=== PATIENT | male | born 1945 | race American Indian/Alaskan Native ===

== ENCOUNTER 2016-05-04 16:18 | Inpatient (IN) | payer MEDICARE ==
[2016-05-04 17:42] LABS: Basophils % (Auto) 0.3 % (0.0-1.8); Eosinophils % (Auto) 0.4 % (0.0-4.3); Hematocrit 29.1 % (35.5-45.6); Hemoglobin 9.3 gm/dl (11.8-15.2); Mean Corpuscular HGB Conc 32 % (32-34); Mean Corpuscular Hemoglobin 30 pg (28-32); Mean Corpuscular Volume 93 fl (84-94); Platelet Count 325 K/mm3 (140-440); Red Blood Count 3.14 M/mm3 (3.65-5.03); Red Cell Distribution Width 13.3 % (13.2-15.2); White Blood Count 11.6 K/mm3 (4.5-11.0)
[2016-05-04 18:32] LABS: Anion Gap 19 mmol/L; Blood Urea Nitrogen 42 mg/dL (9-20); Calcium 9.3 mg/dL (8.4-10.2); Carbon Dioxide 23 mmol/L (22-30); Chloride 92.3 mmol/L (98-107); Glucose 278 mg/dL (75-100); Potassium 4.2 mmol/L (3.6-5.0); Sodium 130 mmol/L (137-145)
[2016-05-04] MEDS ORDERED: PEPCID IV ONE (20:44)
[2016-05-04] MEDS ORDERED: PROTONIX IV ONE (20:44)
[2016-05-04] MEDS ORDERED: NACL 0.9% 500 ML 500 ML IV ONE (20:44)
--- NOTE | 2016-05-04 20:50 | Emergency Department Report ---
ED General Adult HPI - General Chief complaint: Weakness Stated complaint: TACHYCARDIA/SYNCOPE/SENT BY DOC Time Seen by Provider: 05/04/16 20:17 Source: patient, RN notes reviewed Mode of arrival: Ambulatory Limitations: No Limitations - History of Present Illness Initial comments: This is a 70-year-old male, previously unknown to me. His primary care doctor' s Dr. Gross. Has a past medical history of diabetes, high cholesterol, GERD, does not take aspirin. Patient reports never having had a colonoscopy. He does not have a private bank consultant. Reports a family history of colon cancer. Patient presents to the ER complaining of weakness, dizziness, near syncope, dark tarry stool. There is no head trauma. Did not hit his head. No headache or neck pain. No chest pain. Mild shortness of breath. There is no leg pain. There is no leg swelling. No recent trips greater than 4 hours. No recent hospital admissions. Positive nausea. No vomiting. Symptoms are constant. They're worse with physical exertion. They decrease with rest. -: Gradual Severity scale (0 -10): 0 Consistency: constant Improves with: rest Worsens with: movement Associated Symptoms: malaise, syncope, weakness. denies: chest pain, cough, diaphoresis, fever/chills - Related Data Home Medications Medication Instructions Recorded Confirmed Last Taken Atorvastatin Calcium [Lipitor] 20 mg PO QHS 05/04/16 05/04/16 1 Day Ago 20 Lisinopril [Zestril] 5 mg PO QDAY 05/04/16 05/04/16 1 Day Ago 5 Pantoprazole [Protonix] 40 mg PO QDAY 05/04/16 05/04/16 1 Day Ago 40 glipiZIDE [Glucotrol] 5 mg PO BID 05/04/16 05/04/16 1 Day Ago 5 Allergies Allergy/AdvReac Type Severity Reaction Status Date / Time No Known Allergies Allergy Unverified 05/04/16 16:26 ED Review of Systems ROS: Stated complaint: TACHYCARDIA/SYNCOPE/SENT BY DOC Other details as noted in HPI Constitutional: malaise, weakness Eyes: denies: eye discharge ENT: denies: epistaxis Respiratory: denies: cough Cardiovascular: syncope Gastrointestinal: melena. denies: abdominal pain Genitourinary: denies: dysuria Musculoskeletal: denies: back pain Skin: denies: lesions Neurological: weakness Psychiatric: as per HPI Hematological/Lymphatic: denies: easy bleeding ED Past Medical Hx - Past Medical History Previous Medical History?: Yes Hx Hypertension: Yes Hx Diabetes: Yes Hx GERD: Yes Additional medical history: dizziness - Surgical History Past Surgical History?: No - Social History Smoking Status: Current Every Day Smoker Substance Use Type: Alcohol, Prescribed - Medications Home Medications: Home Medications Medication Instructions Recorded Confirmed Last Taken Type Atorvastatin Calcium [Lipitor] 20 mg PO QHS 05/04/16 05/04/16 1 Day Ago History 20 Lisinopril [Zestril] 5 mg PO QDAY 05/04/16 05/04/16 1 Day Ago History 5 Pantoprazole [Protonix] 40 mg PO QDAY 05/04/16 05/04/16 1 Day Ago History 40 glipiZIDE [Glucotrol] 5 mg PO BID 05/04/16 05/04/16 1 Day Ago History 5 ED Physical Exam - General Limitations: No Limitations General appearance: alert, in no apparent distress - Head Head exam: Present: atraumatic, normocephalic - Eye Eye exam: Present: normal appearance, EOMI. Absent: nystagmus - ENT ENT exam: Present: normal exam, normal orophraynx, mucous membranes moist, normal external ear exam - Neck Neck exam: Present: normal inspection, full ROM. Absent: tenderness, meningismus - Respiratory Respiratory exam: Present: normal lung sounds bilaterally. Absent: respiratory distress, wheezes, rales, rhonchi, stridor, chest wall tenderness - Cardiovascular Cardiovascular Exam: Present: normal rhythm, tachycardia, normal heart sounds. Absent: systolic murmur, diastolic murmur, rubs, gallop - GI/Abdominal GI/Abdominal exam: Present: soft, normal bowel sounds. Absent: distended, tenderness, guarding, rebound, rigid, pulsatile mass - Rectal Rectal exam: Present: normal inspection, normal rectal tone, heme (+) stool, black stool - Extremities Exam Extremities exam: Present: normal inspection, full ROM, normal capillary refill. Absent: tenderness, pedal edema, joint swelling, calf tenderness - Back Exam Back exam: Present: normal inspection, full ROM. Absent: tenderness, CVA tenderness (R), CVA tenderness (L), muscle spasm, paraspinal tenderness, vertebral tenderness - Neurological Exam Neurological exam: Present: alert, oriented X3, normal gait (there is no pass pointing. Normal [id number]. Negative pronator drift. Walks with a steady gait. Negative Romberg.), other (Extraocular movements intact. Tongue midline. No facial droop. Facial sensation intact to light touch in the V1, V2 , V3 distribution bilaterally. 5 and 5 strength in 4 extremities.. Sensation is intact to light touch in 4 extremities.). Absent: motor sensory deficit - Psychiatric Psychiatric exam: Present: normal affect, normal mood - Skin Skin exam: Present: warm, dry, intact, normal color. Absent: rash ED Course Vital Signs 05/04/16 05/04/16 05/04/16 16:26 20:09 20:28 Temperature 97.8 F 99.0 F Pulse Rate 39 L 116 H Respiratory 22 18 Rate Blood Pressure 118/67 Blood Pressure 106/62 [Left] O2 Sat by Pulse 97 100 Oximetry 05/04/16 05/04/16 05/04/16 21:38 22:00 22:54 Temperature Pulse Rate 112 H 112 H 110 H Respiratory 18 18 18 Rate Blood Pressure Blood Pressure 115/65 122/62 118/62 [Left] O2 Sat by Pulse 100 100 100 Oximetry - Reevaluation(s) Reevaluation #1: 05/04/16 21:56 Differential diagnosis: Orthostasis, arrhythmia, gastrointestinal bleeding, pneumonia, urinary tract infection, structural cardiac disease Assessment and plan: 70-year-old male with profound tachycardia, elevated blood urea nitrogen, borderline decreased hemoglobin and hematocrit, has had a colonoscopy, has had an endoscopy, with near syncope/syncope. He has a GCS of 15, with an NIH score of 0, and walks with a steady gait. There are no pulmonary embolus or DVT risk factors, and he is low risk by well' s criteria. He has black tarry stool on exam that is strongly guaiac positive. Given constellation of symptoms, I'm concerned that the patient has an active upper GI bleed. 2 large-bore IVs were ordered, Protonix ordered, packed red blood cells are ordered. Case is discussed with the bank consultant, Dr. Rodriguez, whose group will see the patient as a consult in the morning. Case is discussed with the Hospital physician, Dr. Spence, who accepts the patient to her service. Family and patient informed of probable diagnosis, they have no mormon objections to packed red blood cell transfusion. ED Medical Decision Making - Lab Data Result diagrams: 05/05/16 23:10 05/05/16 08:38 Vital Signs 05/04/16 05/04/16 05/04/16 16:26 20:09 20:28 Temperature 97.8 F 99.0 F Pulse Rate 39 L 116 H Respiratory 22 18 Rate Blood Pressure 118/67 Blood Pressure 106/62 [Left] O2 Sat by Pulse 97 100 Oximetry 05/04/16 21:38 Temperature Pulse Rate 112 H Respiratory 18 Rate Blood Pressure Blood Pressure 115/65 [Left] O2 Sat by Pulse 100 Oximetry Labs 05/04/16 05/04/16 05/04/16 16:56 16:56 20:18 WBC 11.6 H RBC 3.14 L Hgb 9.3 L Hct 29.1 L MCV 93 MCH 30 MCHC 32 RDW 13.3 Plt Count 325 Lymph % (Auto) 16.2 Bell % (Auto) 7.0 Eos % (Auto) 0.4 Baso % (Auto) 0.3 Lymph # 1.9 Bell # 0.8 Eos # 0.0 Baso # 0.0 Seg Neutrophils % 76.1 H Seg Neutrophils # 8.8 H PT INR Sodium 130 L Potassium 4.2 Chloride 92.3 L Carbon Dioxide 23 Anion Gap 19 BUN 42 H Creatinine 1.2 Estimated GFR > 60 BUN/Creatinine Ratio 35.00 Glucose 278 H Calcium 9.3 Troponin T < 0.010 < 0.010 Urine Color Urine Turbidity Urine pH Ur Specific [place] Urine Protein Urine Glucose (UA) Urine Ketones Urine Blood Urine Nitrite Urine Bilirubin Urine Urobilinogen Ur Leukocyte Esterase Urine WBC (Auto) Urine RBC (Auto) U Epithel Cells (Auto) Urine Mucus 05/04/16 05/04/16 20:53 21:19 WBC RBC Hgb Hct MCV MCH MCHC RDW Plt Count Lymph % (Auto) Bell % (Auto) Eos % (Auto) Baso % (Auto) Lymph # Bell # Eos # Baso # Seg Neutrophils % Seg Neutrophils # PT 13.5 INR 1.04 Sodium Potassium Chloride Carbon Dioxide Anion Gap BUN Creatinine Estimated GFR BUN/Creatinine Ratio Glucose Calcium Troponin T Urine Color Yellow Urine Turbidity Clear Urine pH 5.0 Ur Specific [place] 1.016 Urine Protein <15 mg/dl Urine Glucose (UA) >=500 Urine Ketones Neg Urine Blood Neg Urine Nitrite Neg Urine Bilirubin Neg Urine Urobilinogen < 2.0 Ur Leukocyte Esterase Neg Urine WBC (Auto) 2.0 Urine RBC (Auto) 1.0 U Epithel Cells (Auto) < 1.0 Urine Mucus Few - EKG Data 05/04/16 21:58 Sinus tachycardia, 121 bpm, normal intervals, normal axis, not morphologically consistent with STEMI. - Radiology Data Radiology results: image reviewed interpreted by me: X-ray chest appears to be negative. Urinalysis does not corroborate urinary tract infection. Critical care time in (mins) excluding proc time.: 35 Critical care attestation.: If time is entered above; I have spent that time in minutes in the direct care of this critically ill patient, excluding procedure time. Critical Care Time: criticall care time includes multiple bedside evaluations, interpretation of laboratory studies, radiology studies, time spent managing a critically ill patient with upper GI bleed, requiring consultation with hospital medicine, gastroenterology, transfusion of packed red blood cells. This excludes procedure time. ED Disposition Clinical Impression: Upper GI bleed Disposition: OP ADMITTED IP TO THIS HOSP Is pt being admited?: Yes Condition: Fair
[2016-05-04] MEDS ORDERED: NACL 0.9% 500 ML IV SCH (21:00)
--- NOTE | 2016-05-04 21:22 | Admit Criteria Form ---
Admission Criteria Documentation: GASTROINTESTINAL BLEEDING, UPPER Clinical Indications for Admission to Inpatient Care ( Place 'X' for any and all applicable criteria): Admission is indicated for ANY ONE of the following(1)(2)(3)(4)(5)(6): [ X]I. Active bleeding (eg, fresh voluminous blood in emesis or nasogastric aspirate) [ ]II. Associated conditions requiring hospitalization (eg, perforation, obstruction from ulcer) [X ]III. Inpatient admission required rather than observation care (Also use Gastrointestinal Bleeding, Upper: Observation Care as appropriate) because of ANY ONE of the following: [X ]a) Hemodynamic instability that is severe or persistent [X]b) Anemia requiring inpatient admission as indicated by ALL of the following: [X ]1) Presence of significant clinical finding indicated by ANY ONE of the following: [ X]A. Tachycardia for age [ ]B. Orthostatic vital sign changes [ ]C. Cognitive impairment [ ]D. Heart failure [ ]E. Chest pain [ ]F. Exertional dyspnea [ ]G. Other findings suggesting inadequate perfusion (eg, peripheral or myocardial ischemia, end organ dysfunction) [ ]2) Initial (eg, emergency department, observation care) treatment with transfusion or volume replacement is judged inappropriate (due to severity of the finding) or has been ineffective [ ]c) Severe pain requiring acute inpatient management [ ]d) High-risk low platelet count [ ]e) IV fluid to replace significant ongoing losses (greater than 3 L/m2 per day) [ ]f) Immediate inpatient surgery [ ]g) Other condition, treatment or monitoring requiring inpatient admission [ ]IV. Severe liver disease (eg, cirrhosis) [ ]V. Significant active comorbid disease [ ]. Anticoagulation therapy [ ]VII. High-risk endoscopic features (arterial bleeding, adherent clot, nonbleeding visible vessel, varices, flat red spots, ulcer size greater than 2 cm, or portal hypertensive gastropathy) [ ]VIII. Previous aortic graft placement or known aortic aneurysm [ ]IX. Coagulopathy [ ]X. Syncope Extended stay beyond goal length of stay may be needed for(1)(2): [ ]a) Emergency surgery [ ]b) Varices [ ]c) Coagulation abnormalities [ ]d) Recurrent, obscure, or persistent bleeding or continued Hemodynamic instability [ ]e) Associated conditions requiring surgery (eg, perforated gastric ulcer, gastric outlet obstruction) [ ]f) Active comorbidities (eg, renal insufficiency, heart failure, pre- existing liver disease) The original [facility] [employer] content created by [facility] [employer] has been revised. The portions of the content which have been revised are identified through the use of italic text or in bold, and [facility] has neither reviewed nor approved the modified material. All other unmodified content is copyright [facility] [employer]. Please see references footnoted in the original [facility] [employer] edition 2016 Admission Criteria Met: Yes
[2016-05-04 21:24] LABS: Bilirubin,Urine NEG (Negative); Blood,Urine NEG (Negative); Ketones,Urine NEG (Negative); Leukocyte Esterase,Urine NEG (Negative); Mucus,Urine FEW /HPF; Nitrite,Urine NEG (Negative); Protein,Urine <15 mg/dL mg/dL (Negative); Urobilinogen,Urine < 2.0 mg/dL (<2.0)
[2016-05-04 21:48] LABS: INR 1.04 (0.87-1.13)
--- NOTE | 2016-05-04 21:49 | History and Physical Report ---
History of Present Illness Date of examination: 05/04/16 Date of admission: 05/04/16 Chief complaint: Dizziness and syncope History of present illness: This is a 70 y/o male with h/o DM2 on oral hypoglycemic medication, hypertension and hyperlipidemia presented to the ER today from his primary care physician office. Patient states that for the last 3-4 days he was experiencing dizziness and black tarry stool. Today morning when he wakes up his dizziness was much worse than prior episodes and was lasting longer than usual. He was sitting on a chair on his drive way and all of a sudden he passed way, noticed by his cousin. He was unresponsive for a few minutes without any urinary incontinence tongue bite or any seizure type activity. He was taken to his primary care physician office and they recommended him to come to ER. In the ER patient noted to be tachycardic and his stool was positive for occult blood. His hemoglobin noted to be 9.3 and a repeated one showed 8.0 , he'll be getting 1 unit of blood transfusion today. GI has been consulted from the ER was called follow him tomorrow morning. Patient is getting admitted for further evaluation and management. He denies any similar episode before and never had colonoscopy. Past medical History: h/o diabetes mellitus type 2, hypertension and hyperlipidemia Past surgical History: None Social History: Lives with family, smokes 1-2 cigarettes per day, occasional drinking and denies any elicit drug abuse. Family History: Significant for lung cancer in father, and colon cancer and throat cancer in brother. PCP: Dr. Gross Review of System: Constitutional: no fever, no chills, no weight loss, + dizziness Ears, eyes, nose, mouth and throat: no nasal congestion, no nasal discharge, no sinus pressure, no vision change, no red eye. Neck: No neck pain or rigidity. Cardiovascular: No chest pain, no orthopnea, no palpitations, no leg swelling Respiratory: No shortness of breath, no cough, no congestion, no wheezing Gastrointestinal: no abdominal pain, no nausea, no vomiting, + debbie Genitourinary : no dysuria, no hematuria Musculoskeletal: no joint swelling or muscle ache Integumentary: no rash, no pruritis Neurological: no parathesias, no numbness, no tingling Endocrine: no cold or heat intolerance, no polyuria or polydipsia Hematologic/Lymphatic: no easy bruising, no easy bleeding, no gland swelling Allergic/Immunologic: no urticaria, no angioedema. Medications and Allergies Allergies Allergy/AdvReac Type Severity Reaction Status Date / Time No Known Allergies Allergy Unverified 05/04/16 16:26 Home Medications Medication Instructions Recorded Confirmed Last Taken Type Atorvastatin Calcium [Lipitor] 20 mg PO QHS 05/04/16 05/04/16 1 Day Ago History 20 Lisinopril [Zestril] 5 mg PO QDAY 05/04/16 05/04/16 1 Day Ago History 5 Pantoprazole [Protonix] 40 mg PO QDAY 05/04/16 05/04/16 1 Day Ago History 40 glipiZIDE [Glucotrol] 5 mg PO BID 05/04/16 05/04/16 1 Day Ago History 5 Active Meds: Active Medications Sodium Chloride (Nacl 0.9% 500 Ml) 2,000 ml IV NOW JAYSHREE Last Admin: 05/04/16 21:20 Dose: 2,000 ml Exam - Physical Exam Narrative exam: GENERAL: This is an elderly AAM lying on bed appeared to be in no discomfort. HEENT: Normocephalic. Atraumatic. Extraocular motions are intact. No conjunctival congestion or icterus. Patient has moist mucous membranes. External auditory canal and nares patent bilaterally. NECK: Supple. Trachea midline. No JVD, thyromagaly or lymphadenopathy. CHEST/LUNGS: Clear to auscultated bilaterally. There is no respiratory distress noted, breathing nonlabored. No wheezes crackles or rhonchi. HEART/CARDIOVASCULAR: Regular in rate and rhythm. PMI at the apex. There is no gallop rub or murmur. ABDOMEN: Abdomen is soft, nontender. Patient has normal bowel sounds. There is no abdominal distention. No organomagaly or rigidity. SKIN: There is no rash, no erythrema. There is no diaphoresis. Warm and dry. NEUROLOGY: The patient is awake, alert, and oriented. The patient is cooperative. The patient has normal speech. No focal motor deficit. MUSCULOSKELETAL: No joint effusion or tenderness. Muscle strength equal bilaterally. No muscle wasting. EXTRIMITY: No edema, cyanosis or clubbing. PSYCH: No depression or anxiety noted. Cooperative. - Constitutional Vitals: Temp Pulse Resp BP Pulse Ox 99.0 F 112 H 18 115/65 100 05/04/16 20:28 05/04/16 21:38 05/04/16 21:38 05/04/16 21:38 05/04/16 21:38 Results - Labs CBC & Chem 7: 05/04/16 22:10 05/04/16 16:56 Labs: Laboratory Last Values WBC 11.6 K/mm3 (4.5-11.0) H 05/04/16 16:56 RBC 3.14 M/mm3 (3.65-5.03) L 05/04/16 16:56 Hgb 9.3 gm/dl (11.8-15.2) L 05/04/16 16:56 Hct 29.1 % (35.5-45.6) L 05/04/16 16:56 MCV 93 fl (84-94) 05/04/16 16:56 MCH 30 pg (28-32) 05/04/16 16:56 MCHC 32 % (32-34) 05/04/16 16:56 RDW 13.3 % (13.2-15.2) 05/04/16 16:56 Plt Count 325 K/mm3 (140-440) 05/04/16 16:56 Lymph % (Auto) 16.2 % (13.4-35.0) 05/04/16 16:56 [place] % (Auto) 7.0 % (0.0-7.3) 05/04/16 16:56 Eos % (Auto) 0.4 % (0.0-4.3) 05/04/16 16:56 Baso % (Auto) 0.3 % (0.0-1.8) 05/04/16 16:56 Lymph # 1.9 K/mm3 (1.2-5.4) 05/04/16 16:56 [place] # 0.8 K/mm3 (0.0-0.8) 05/04/16 16:56 Eos # 0.0 K/mm3 (0.0-0.4) 05/04/16 16:56 Baso # 0.0 K/mm3 (0.0-0.1) 05/04/16 16:56 Seg Neutrophils % 76.1 % (40.0-70.0) H 05/04/16 16:56 Seg Neutrophils # 8.8 K/mm3 (1.8-7.7) H 05/04/16 16:56 Sodium 130 mmol/L (137-145) L 05/04/16 16:56 Potassium 4.2 mmol/L (3.6-5.0) 05/04/16 16:56 Chloride 92.3 mmol/L (98-107) L 05/04/16 16:56 Carbon Dioxide 23 mmol/L (22-30) 05/04/16 16:56 Anion Gap 19 mmol/L 05/04/16 16:56 BUN 42 mg/dL (9-20) H 05/04/16 16:56 Creatinine 1.2 mg/dL (0.8-1.5) 05/04/16 16:56 Estimated GFR > 60 ml/min 05/04/16 16:56 BUN/Creatinine Ratio 35.00 % 05/04/16 16:56 Glucose 278 mg/dL (75-100) H 05/04/16 16:56 Calcium 9.3 mg/dL (8.4-10.2) 05/04/16 16:56 Troponin T < 0.010 ng/mL (0.00-0.029) 05/04/16 20:18 Urine Color Yellow (Yellow) 05/04/16 20:53 Urine Turbidity Clear (Clear) 05/04/16 20:53 Urine pH 5.0 (5.0-7.0) 05/04/16 20:53 Ur Specific [place] 1.016 (1.003-1.030) 05/04/16 20:53 Urine Protein <15 mg/dl mg/dL (Negative) 05/04/16 20:53 Urine Glucose (UA) >=500 mg/dL (Negative) 05/04/16 20:53 Urine Ketones Neg mg/dL (Negative) 05/04/16 20:53 Urine Blood Neg (Negative) 05/04/16 20:53 Urine Nitrite Neg (Negative) 05/04/16 20:53 Urine Bilirubin Neg (Negative) 05/04/16 20:53 Urine Urobilinogen < 2.0 mg/dL (<2.0) 05/04/16 20:53 Ur Leukocyte Esterase Neg (Negative) 05/04/16 20:53 Urine WBC (Auto) 2.0 /HPF (0.0-6.0) 05/04/16 20:53 Urine RBC (Auto) 1.0 /HPF (0.0-6.0) 05/04/16 20:53 U Epithel Cells (Auto) < 1.0 /HPF (0-13.0) 05/04/16 20:53 Urine Mucus Few /HPF 05/04/16 20:53 - Imaging and Cardiology Chest x-ray: report reviewed Assessment and Plan Assessment and plan: Dizziness with syncope * Likely due to to dehydration from acute GI bleed * Placed on IV fluid hydration, fall precaution Acute upper GI bleed * Monitor H&H * GI consulted * Transfused 1 unit of packed RBC in the ER * Continue adequate hydration * Placed on Protonix IV Hypertension, benign essential * Hold home medications for now * Resume as needed Diabetes mellitus type 2 * Place on sliding scale of insulin * Nothing by mouth for now, ADA diet when cleared by GI Hyperlipidemia * Continue statin GI and DVT prophylaxis * SCD for DVT prophylaxis and Protonix for GI prophylaxis It took me about 46 minutes for initial care of this patient including history and physical, reviewing initial lab results and ER documents, placing admission orders, bedside counseling and coordination of care. Advance Directives: Yes VTE prophylaxis?: Not ordered Contraindication Mechanical VTE Prophylaxis: Contraindicated Plan of care discussed with patient/family: Yes
[2016-05-04] MEDS ORDERED: ZOFRAN IV PRN (21:51)
[2016-05-04] MEDS ORDERED: MORPHINE IV PRN (21:51)
[2016-05-04] MEDS ORDERED: TYLENOL PO PRN (21:51)
[2016-05-04] MEDS ORDERED: D50W (25GM) IV PRN (21:51)
[2016-05-04] MEDS ORDERED: DULCOLAX PR PRN (21:51)
[2016-05-04] MEDS ORDERED: AMBIEN PO PRN (21:51)
[2016-05-04] MEDS ORDERED: PROTONIX 80 MG in NACL 0.9% 100 ML IV SCH (22:00)
[2016-05-04] MEDS ORDERED: D5/0.45NS 1,000 ML IV SCH (22:00)
[2016-05-04 22:35] LABS: Hematocrit 24.7 % (35.5-45.6)
[2016-05-04] MEDS: PROTONIX IV SCH (22:49)
[2016-05-05] MEDS ORDERED: NACL 0.9% 1000 ML 1,000 ML IV SCH (01:00)
--- NOTE | 2016-05-05 07:21 | XRay Report ---
AP CHEST: HISTORY: Syncope, weakness. AP view of the chest demonstrates a normal mediastinal and cardiac contour with clear lungs and normal bony and soft tissue structures. IMPRESSION: Unremarkable AP chest.
[2016-05-05 09:19] LABS: Basophils % (Auto) 0.4 % (0.0-1.8); Eosinophils % (Auto) 2.2 % (0.0-4.3); Hemoglobin 10.9 gm/dl (11.8-15.2); Mean Corpuscular HGB Conc 33 % (32-34); Mean Corpuscular Hemoglobin 30 pg (28-32); Platelet Count 244 K/mm3 (140-440); Red Blood Count 3.68 M/mm3 (3.65-5.03); White Blood Count 10.5 K/mm3 (4.5-11.0)
[2016-05-05 09:26] LABS: Hematocrit 32.9 % (35.5-45.6)
[2016-05-05 09:27] LABS: Mean Corpuscular Volume 89 fl (84-94)
[2016-05-05 09:36] LABS: Anion Gap 16 mmol/L; BUN/Creatinine Ratio 25.71; Blood Urea Nitrogen 18 mg/dL (9-20); Calcium 8.5 mg/dL (8.4-10.2); Carbon Dioxide 21 mmol/L (22-30); Chloride 105.1 mmol/L (98-107); Glucose 134 mg/dL (75-100); Potassium 3.7 mmol/L (3.6-5.0); Sodium 138 mmol/L (137-145)
[2016-05-05 09:39] LABS: INR 1.03 (0.87-1.13)
[2016-05-05] MEDS: PROTONIX IV SCH ×2 (09:56→21:36)
[2016-05-05] MEDS: GLUCOTROL PO SCH ×2 (09:57→17:49)
--- NOTE | 2016-05-05 11:33 | Progress Note ---
Assessment and Plan Assessment and plan: 1. Syncope * Likely due to to anemia from acute GI bleed * Patient is status post 2 units of packed red blood cells. 2. Acute upper GI bleed * Monitor H&H * GI consulted * Continue adequate hydration * Cont. Protonix IV 3. Hypertension, benign essential * Hold home medications for now * Resume as needed 4. Diabetes mellitus type 2 * Place on sliding scale of insulin * Nothing by mouth for now, ADA diet when cleared by GI 5. Hyperlipidemia * Continue statin 6. DVT prophylaxis * SCD for DVT prophylaxis History Interval history: This is a 70 y/o male with h/o DM2 on oral hypoglycemic medication, hypertension and hyperlipidemia presented to the ER today from his primary care physician office with complaints of melena, syncope and dizziness. Hospitalist Physical - Constitutional Vitals: Temp Pulse Resp BP Pulse Ox 98.6 F 95 H 20 183/90 100 05/05/16 07:10 05/05/16 09:49 05/05/16 09:49 05/05/16 09:49 05/05/16 09:49 General appearance: Present: no acute distress, well-nourished - EENT Eyes: Present: PERRL, EOM intact ENT: hearing intact, clear oral mucosa, dentition normal - Neck Neck: Present: supple, normal ROM - Respiratory Respiratory effort: normal Respiratory: bilateral: CTA - Cardiovascular Rhythm: regular Heart Sounds: Present: S1 & S2. Absent: gallop, rub - Extremities Extremities: no ischemia, No edema, Full ROM - Abdominal General gastrointestinal: soft, non-tender, non-distended, normal bowel sounds - Integumentary Integumentary: Present: clear, warm, dry - Neurologic Neurologic: CNII-XII intact, moves all extremities Results - Labs CBC & Chem 7: 05/05/16 08:38 05/05/16 08:38 Labs: Laboratory Last Values WBC 10.5 K/mm3 (4.5-11.0) 05/05/16 08:38 RBC 3.68 M/mm3 (3.65-5.03) 05/05/16 08:38 Hgb 10.9 gm/dl (11.8-15.2) L 05/05/16 08:38 Hct 32.9 % (35.5-45.6) L D 05/05/16 08:38 MCV 89 fl (84-94) D 05/05/16 08:38 MCH 30 pg (28-32) 05/05/16 08:38 MCHC 33 % (32-34) 05/05/16 08:38 RDW 14.0 % (13.2-15.2) 05/05/16 08:38 Plt Count 244 K/mm3 (140-440) 05/05/16 08:38 Lymph % (Auto) 22.7 % (13.4-35.0) 05/05/16 08:38 [place] % (Auto) 6.8 % (0.0-7.3) 05/05/16 08:38 Eos % (Auto) 2.2 % (0.0-4.3) 05/05/16 08:38 Baso % (Auto) 0.4 % (0.0-1.8) 05/05/16 08:38 Lymph # 2.4 K/mm3 (1.2-5.4) 05/05/16 08:38 [place] # 0.7 K/mm3 (0.0-0.8) 05/05/16 08:38 Eos # 0.2 K/mm3 (0.0-0.4) 05/05/16 08:38 Baso # 0.0 K/mm3 (0.0-0.1) 05/05/16 08:38 Seg Neutrophils % 67.9 % (40.0-70.0) 05/05/16 08:38 Seg Neutrophils # 7.1 K/mm3 (1.8-7.7) 05/05/16 08:38 PT 13.4 Sec. (12.2-14.9) 05/05/16 08:38 INR 1.03 (0.87-1.13) 05/05/16 08:38 Sodium 138 mmol/L (137-145) D 05/05/16 08:38 Potassium 3.7 mmol/L (3.6-5.0) 05/05/16 08:38 Chloride 105.1 mmol/L (98-107) 05/05/16 08:38 Carbon Dioxide 21 mmol/L (22-30) L 05/05/16 08:38 Anion Gap 16 mmol/L 05/05/16 08:38 BUN 18 mg/dL (9-20) 05/05/16 08:38 Creatinine 0.7 mg/dL (0.8-1.5) L 05/05/16 08:38 Estimated GFR > 60 ml/min 05/05/16 08:38 BUN/Creatinine Ratio 25.71 % 05/05/16 08:38 Glucose 134 mg/dL (75-100) H 05/05/16 08:38 POC Glucose 120 (70-105) H 05/05/16 06:22 Calcium 8.5 mg/dL (8.4-10.2) 05/05/16 08:38 Troponin T < 0.010 ng/mL (0.00-0.029) 05/04/16 21:24 Urine Color Yellow (Yellow) 05/04/16 20:53 Urine Turbidity Clear (Clear) 05/04/16 20:53 Urine pH 5.0 (5.0-7.0) 05/04/16 20:53 Ur Specific [place] 1.016 (1.003-1.030) 05/04/16 20:53 Urine Protein <15 mg/dl mg/dL (Negative) 05/04/16 20:53 Urine Glucose (UA) >=500 mg/dL (Negative) 05/04/16 20:53 Urine Ketones Neg mg/dL (Negative) 05/04/16 20:53 Urine Blood Neg (Negative) 05/04/16 20:53 Urine Nitrite Neg (Negative) 05/04/16 20:53 Urine Bilirubin Neg (Negative) 05/04/16 20:53 Urine Urobilinogen < 2.0 mg/dL (<2.0) 05/04/16 20:53 Ur Leukocyte Esterase Neg (Negative) 05/04/16 20:53 Urine WBC (Auto) 2.0 /HPF (0.0-6.0) 05/04/16 20:53 Urine RBC (Auto) 1.0 /HPF (0.0-6.0) 05/04/16 20:53 U Epithel Cells (Auto) < 1.0 /HPF (0-13.0) 05/04/16 20:53 Urine Mucus Few /HPF 05/04/16 20:53 Blood Type A POSITIVE 05/04/16 21:20 Antibody Screen Negative 05/04/16 21:20 Crossmatch See Detail 05/04/16 21:20
[2016-05-05 14:17] LABS: Hematocrit 33.7 % (35.5-45.6)
--- NOTE | 2016-05-05 15:31 | Gastroenterology Consultation ---
History of Present Illness - Reason for Consult Consult date: 05/05/16 melena Requesting physician: JOE JAMISON - History of Present Illness Mr. Gonzalez is a 70 y/o male admitted with 3-4 day hx of melena with associated syncopal episode. He denies NSIAD use or abdominal pain. No N/V. He has never underwent EGD. PMH HTN, DM, GERD. Past History Past Medical History: diabetes, GERD, hypertension Past Surgical History: No surgical history Social history: , lives with family Family history: no significant family history Medications and Allergies Allergies Allergy/AdvReac Type Severity Reaction Status Date / Time No Known Allergies Allergy Unverified 05/04/16 16:26 Home Medications Medication Instructions Recorded Confirmed Last Taken Type Atorvastatin Calcium [Lipitor] 20 mg PO QHS 05/04/16 05/04/16 1 Day Ago History 20 Lisinopril [Zestril] 5 mg PO QDAY 05/04/16 05/04/16 1 Day Ago History 5 Pantoprazole [Protonix] 40 mg PO QDAY 05/04/16 05/04/16 1 Day Ago History 40 glipiZIDE [Glucotrol] 5 mg PO BID 05/04/16 05/04/16 1 Day Ago History 5 Active Meds: Active Medications Acetaminophen (Tylenol) 650 mg PO Q4H PRN PRN Reason: Pain MILD(1-3)/Fever >100.5/WHALEY Atorvastatin Calcium (Lipitor) 20 mg PO QHS [facility] Last Admin: 05/04/16 22:50 Dose: 20 mg Bisacodyl (Dulcolax) 10 mg [place] QDAY PRN PRN Reason: Constipation unrelieved by MOM Dextrose (D50w (25gm)) 50 ml IV PRN PRN PRN Reason: Hypoglycemia Glipizide (Glucotrol) 5 mg PO BIDDIAB [facility] Last Admin: 05/05/16 09:57 Dose: Not Given Sodium Chloride (Nacl 0.9% 1000 Ml) 1,000 mls @ 100 mls/hr IV DIRECT [facility] Insulin Human Regular (Novolin R) 0 units SUB-Q Q6HR [facility] PRN Reason: Protocol Last Admin: 05/05/16 07:14 Dose: Not Given Morphine Sulfate (Morphine) 2 mg IV Q4H PRN PRN Reason: Pain, Moderate (4-6) Ondansetron HCl (Zofran) 4 mg IV Q8H PRN PRN Reason: N/V unrelieved by Reglan Pantoprazole Sodium (Protonix) 40 mg IV BID JAYSHREE Last Admin: 05/05/16 09:56 Dose: 40 mg Zolpidem Tartrate (Ambien) 5 mg PO QHS PRN PRN Reason: Insomnia Review of Systems - Review of Systems Constitutional: weakness Neurological: no other (syncope) Exam - Constitutional Vital Signs: Temp Pulse Resp BP Pulse Ox 98.6 F 99 H 20 179/89 100 05/05/16 07:10 05/05/16 13:49 05/05/16 13:49 05/05/16 13:49 05/05/16 13:49 General appearance: no acute distress - EENT Eyes: EOM intact ENT: clear oral mucosa - Neck Neck: supple - Respiratory Respiratory: bilateral: CTA - Cardiovascular Rhythm: regular Heart Sounds: Present: S1 & S2 - Gastrointestinal General gastrointestinal: Present: soft, non-tender Rectal Exam: nodular - Integumentary Integumentary: Present: warm, dry - Neurologic Neurological: alert and oriented x3 - Psychiatric Psychiatric: appropriate mood/affect, cooperative - Labs CBC & Chem 7: 05/05/16 13:58 05/05/16 08:38 Lab Results: Laboratory Results - last 24 hr 05/04/16 05/05/16 05/05/16 22:10 00:32 06:22 WBC RBC Hgb 8.0 L Hct 24.7 L MCV MCH MCHC RDW Plt Count Lymph % (Auto) [place] % (Auto) Eos % (Auto) Baso % (Auto) Lymph # [place] # Eos # Baso # Seg Neutrophils % Seg Neutrophils # PT INR Sodium Potassium Chloride Carbon Dioxide Anion Gap BUN Creatinine Estimated GFR BUN/Creatinine Ratio Glucose POC Glucose 301 H 120 H Calcium 05/05/16 05/05/16 05/05/16 08:38 08:38 08:38 WBC 10.5 RBC 3.68 Hgb 10.9 L Hct 32.9 L D MCV 89 D MCH 30 MCHC 33 RDW 14.0 Plt Count 244 Lymph % (Auto) 22.7 [place] % (Auto) 6.8 Eos % (Auto) 2.2 Baso % (Auto) 0.4 Lymph # 2.4 [place] # 0.7 Eos # 0.2 Baso # 0.0 Seg Neutrophils % 67.9 Seg Neutrophils # 7.1 PT 13.4 INR 1.03 Sodium 138 D Potassium 3.7 Chloride 105.1 Carbon Dioxide 21 L Anion Gap 16 BUN 18 Creatinine 0.7 L Estimated GFR > 60 BUN/Creatinine Ratio 25.71 Glucose 134 H POC Glucose Calcium 8.5 05/05/16 05/05/16 11:34 13:58 WBC RBC Hgb 11.0 L Hct 33.7 L MCV MCH MCHC RDW Plt Count Lymph % (Auto) [place] % (Auto) Eos % (Auto) Baso % (Auto) Lymph # [place] # Eos # Baso # Seg Neutrophils % Seg Neutrophils # PT INR Sodium Potassium Chloride Carbon Dioxide Anion Gap BUN Creatinine Estimated GFR BUN/Creatinine Ratio Glucose POC Glucose 176 H Calcium Assessment and Plan 1. Melena 2. Anemia -EGD tomorrow -NPO after MN -PPI BID -Ok for soft diet until MN -NO blood thinning meds.
[2016-05-05 23:54] LABS: Hematocrit 31.7 % (35.5-45.6); Hemoglobin 10.5 gm/dl (11.8-15.2)
[2016-05-06] MEDS ORDERED: WATER FOR IRRIG STERILE IR ONE (07:17)
--- NOTE | 2016-05-06 07:27 | Anesthesia Consultation ---
Anesthesia Consult and Med Hx Date of service: 05/06/16 - Pre-Operative Health Status ASA Pre-Surgery Classification: ASA2 Proposed Anesthetic Plan: MAC - Pulmonary Hx Smoking: Yes (03/30 ppd) - Cardiovascular System Hx Hypertension: Yes (high cholesterol) - Central Nervous System Hx Psychiatric Problems: No - Gastrointestinal Hx Gastroesophageal Reflux Disease: Yes - Hematic Hx Anemia: Yes (received 2 U PRBCs on 05/05/16) - Other Systems Hx Alcohol Use: Yes Hx Cancer: No
--- NOTE | 2016-05-06 07:44 | Anesthesia Day of Surgery ---
Anesthesia Day of Surgery - Day of Surgery Patient Examined: Yes Patient H&P Reviewed: Yes Patient is NPO: Yes
[2016-05-06] MEDS ORDERED: NACL 0.9% 1000 ML 1,000 ML IV SCH (08:00)
[2016-05-06] MEDS ORDERED: DIPRIVAN 10 MG/ML IV ONE ×2 (08:30)
--- NOTE | 2016-05-06 08:57 | Post Operative Note ---
Pre-op diagnosis: melena Post-op diagnosis: same Findings: EGD: small hiatal hernia - small amount food stomach - antral gastritis (bx's) - large (2 cm) white based ulcer w/o bleeding stigmata duodenal bulb (bx's) - negative other Procedure: EGD Anesthesia: MAC Surgeon: PATRICIA MAZA Estimated blood loss: none Pathology: list Specimen disposition: to lab Condition: stable Disposition: floor
--- NOTE | 2016-05-06 09:34 | Post Anesthesia Evaluation ---
- Post Anesthesia Evaluation Patient Participated: Yes Airway Patent: Yes Stable Respiratory Function: Yes Nausea/Vomiting: No Temp > 96.8F: Yes Pain Manageable: Yes Adequeate Hydration: Yes Anesthesia Complications: No Block Receding Appropriately: Not Applicable Patient on Ventilator: No
--- NOTE | 2016-05-06 10:07 | Operative Report ---
PROCEDURE: EGD with cold biopsy. INDICATION: 1. Anemia. 2. Melena. MEDICATIONS: Propofol per RADIATION ONCOLOGY NURSE. COMPLICATIONS: None. DESCRIPTION OF PROCEDURE: The patient brought to procedure suite. The patient had the procedure discussed with him at length. All risks, complications, and benefits discussed after which the patient signed for the procedure to perform. The patient was placed in left lateral decubitus position. Mouth block was placed in the patient's oral cavity. After adequate sedation medication as above, endoscope placed in the mouth and brought to the level of the second portion of duodenum. Retroflexion view performed. The patient's vital signs remained stable throughout the procedure. FINDINGS: There was noted to be a small to medium hiatal hernia at GE junction, which was 39 cm from the gums. The esophagus otherwise appeared to be normal. There was a small amount of semisolid food material noted in the proximal stomach, especially in the gastric body. There was noted to be antral gastritis. Biopsies were taken and sent to pathology. This was mild to moderate in intensity. The remaining stomach otherwise appeared to be normal. There was a large 2-3 cm white base ulcer noted in the duodenal bulb. This took up surface area of the duodenal bulb, which was a short bulb to begin with. No stigmata of bleeding was noted. Biopsies were taken and sent to pathology. The second portion of duodenum was visualized, hence demonstrating no signs of outlet obstruction. Retroflexion view performed in the stomach showed no other pathology other than noted above. The patient tolerated the procedure well. No complications during the procedure. IMPRESSION: 1. Hiatal hernia. 2. Otherwise, normal esophagus. 3. Food in the stomach. 4. Gastritis, biopsies performed. 5. Large wide based ulcer in the duodenal bulb, biopsies performed. 6. Otherwise, normal duodenum. RECOMMENDATIONS: 1. Follow up biopsy results. 2. Stool for H. pylori, if present treat. 3. PPI p.o. b.i.d. 4. Carafate suspension q.i.d. 5. Advance diet. 6. Okay to discharge from GI standpoint, we will follow up as an outpatient in 2-3 weeks. [facility]# [id number] CAB/NTS
[2016-05-06] MEDS: GLUCOTROL PO SCH (10:56)
[2016-05-06] MEDS: PROTONIX IV SCH (10:56)
--- NOTE | 2016-05-06 11:44 | Discharge Summary ---
Providers - Providers Date of Admission: 05/04/16 21:52 Date of discharge: 05/06/16 Attending physician: JOE JAMISON Primary care physician: KATHIE BARRIGA Hospitalization Reason for admission: syncope, melena Condition: Fair Hospital course: Mr. Gonzalez is a 70 y/o male with past medical history of DM, hypertension, GERD was admitted with 3-4 day hx of melena with associated syncopal episode. He denied NSIAD use or abdominal pain. No N/V. Patient received 2 units of packed red blood cells. H&H stabilized. Patient was treated with Protonix IV. Patient underwent EGD which revealed small hiatal hernia, antral gastritis and large 2 cm wide-based ulcer without bleeding stigmata duodenal bulb. GI recommended PPI twice a day, Carafate suspension 4 times a day and follow-up in 2 weeks as outpatient. Dedicated discharge time 35 minutes. Disposition: DISCHARGED TO HOME OR SELFCARE Time spent for discharge: 35 - Discharge Diagnoses (1) Melena Status: Acute (2) Acute blood loss anemia Status: Acute (3) Syncope Status: Acute Qualifiers: Syncope type: S Encounter type: E Core Measure Documentation - Palliative Care Palliative Care/ Comfort Measures: Not Applicable - Core Measures Any of the following diagnoses?: none Exam - Constitutional Vitals: Temp Pulse Resp BP Pulse Ox 97.7 F 95 H 20 99/65 100 05/06/16 08:56 05/06/16 10:00 05/06/16 10:00 05/06/16 09:12 05/06/16 09:12 General appearance: Present: no acute distress, well-nourished - EENT Eyes: Present: PERRL ENT: hearing intact, clear oral mucosa - Neck Neck: Present: supple, normal ROM - Respiratory Respiratory effort: normal Respiratory: bilateral: CTA - Cardiovascular Heart Sounds: Present: S1 & S2. Absent: rub, click - Extremities Extremities: pulses symmetrical, No edema Peripheral Pulses: within normal limits - Abdominal General gastrointestinal: Present: soft, non-tender, non-distended, normal bowel sounds Male genitourinary: Present: normal - Integumentary Integumentary: Present: clear, warm, dry - Musculoskeletal Musculoskeletal: gait normal, strength equal bilaterally - Psychiatric Psychiatric: appropriate mood/affect, intact judgment & insight - Neurologic Neurologic: CNII-XII intact, moves all extremities Plan Activity: no restrictions Weight Bearing Status: Full Weight Bearing Diet: diabetic Follow up with: KATHIE BARRIGA MD [Primary Care Provider] - 3-5 Days ANYA ARGUETA MD [Staff Physician] - 7 Days Prescriptions: Atorvastatin Calcium [Lipitor] 20 mg PO QHS #30 tablet Lisinopril [Zestril TAB] 5 mg PO QDAY #30 tablet
[2016-05-06] MEDS ORDERED: CARAFATE PO SCH (12:00)
[2016-05-06 13:49] VITALS: BP 135/72
[2016-05-06] MEDS ORDERED: PROTONIX PO SCH (22:00)
== END 2016-05-06 14:46 | disposition home or self-care (01) | DRG 378 ==
LOC: ED 16:18 → 4A 21:52
PROVIDERS: ADMIT Internal Medicine; ATTEND Hospitalist
PROC: 30233N1 Transfusion of Nonautologous Red Blood Cells into Peripheral Vein, Percutaneous Approach (ICD-10-PCS; 2016-05-05)
PROC: 0DB98ZX Excision of Duodenum, Via Natural or Artificial Opening Endoscopic, Diagnostic (ICD-10-PCS; principal; 2016-05-06)
PROC: 0DB68ZX Excision of Stomach, Via Natural or Artificial Opening Endoscopic, Diagnostic (ICD-10-PCS; 2016-05-06)
DX: K92.1 Melena (principal); D62 Acute posthemorrhagic anemia; I10 Essential (primary) hypertension; E78.5 Hyperlipidemia, unspecified; E11.9 Type 2 diabetes mellitus without complications; K21.9 Gastro-esophageal reflux disease without esophagitis; F17.210 Nicotine dependence, cigarettes, uncomplicated; K26.9 Duodenal ulcer, unspecified as acute or chronic, without hemorrhage or perforation; E86.0 Dehydration; K29.70 Gastritis, unspecified, without bleeding; K44.9 Diaphragmatic hernia without obstruction or gangrene; Z79.84 Long term (current) use of oral hypoglycemic drugs
CPT/HCPCS: 36415; 71010; 80048; 81001; 82271; 82962; 84484; 85014; 85018; 85025; 85610; 86850; 86900; 86901; 86920; 88305; 88342; 93005; 93010; 96374; 96375; 99406; A9270-GY; C9113; J1815; J2704; J7030; J7040; P9016

== ENCOUNTER 2016-05-17 12:56 | Inpatient (IN) | payer MEDICARE ==
[2016-05-17] MEDS ORDERED: PROTONIX IV ONE (15:20)
[2016-05-17] MEDS ORDERED: NACL 0.9% 1000 ML 1,000 ML IV ONE (15:24)
--- NOTE | 2016-05-17 15:25 | Emergency Department Report ---
HPI - General Chief Complaint: GI Bleed Time Seen by Provider: 05/17/16 14:52 - HPI HPI: Room 1 The patient is a 70-year-old male presenting with a chief complaint is lightheadedness and melena. The patient was recently discharged from the hospital after workup for upper GI bleed. The patient states this morning he awakened with dizziness mostly when standing. The patient states he noticed this morning his stool was black again. Patient denies abdominal pain nausea or vomiting. Location: Gastrointestinal system Duration: [see above] Quality: Dizziness, melena Severity: Moderate Modifying factors: Standing causes dizziness Context: [see above] Mode of transportation: [not driving] ED Past Medical Hx - Past Medical History Previous Medical History?: Yes Hx Hypertension: Yes (high cholesterol) Hx Diabetes: Yes Hx GERD: Yes Additional medical history: dizziness, Gastic ulcers - Surgical History Past Surgical History?: Yes Additional Surgical History: EGD 04/2016 - Family History Family history: no significant - Social History Smoking Status: Never Smoker Substance Use Type: None - Medications Home Medications: Home Medications Medication Instructions Recorded Confirmed Last Taken Type glipiZIDE [Glucotrol] 5 mg PO BID 05/04/16 05/17/16 1 Day Ago History 5 Atorvastatin Calcium [Lipitor] 20 mg PO QHS #30 tablet 05/06/16 05/17/16 Unknown Rx Lisinopril [Zestril TAB] 5 mg PO QDAY #30 tablet 05/06/16 05/17/16 Unknown Rx Sucralfate [Carafate] 1 gm PO Q6HR #120 udc 05/06/16 05/17/16 Unknown Rx Pantoprazole [Protonix TAB] 40 mg PO BID #60 tablet 05/12/16 05/17/16 Unknown Rx ED Review of Systems ROS: Stated complaint: DIZZINESS/BLOOD SUGAR HIGH Other details as noted in HPI Comment: All other systems reviewed and negative Constitutional: denies: chills, fever Eyes: denies: eye pain, eye discharge, vision change ENT: denies: ear pain, throat pain Respiratory: denies: cough, shortness of breath, wheezing Cardiovascular: denies: chest pain, palpitations Endocrine: no symptoms reported Gastrointestinal: melena. denies: abdominal pain, nausea, vomiting Genitourinary: denies: urgency, dysuria Musculoskeletal: denies: back pain, joint swelling, arthralgia Skin: denies: rash, lesions Neurological: denies: headache, weakness, paresthesias Psychiatric: denies: anxiety, depression Hematological/Lymphatic: denies: easy bleeding, easy bruising Physical Exam - Physical Exam Vital Signs: Vital Signs 05/17/16 14:20 Temperature 97.9 F Pulse Rate 104 H Respiratory 16 Rate Blood Pressure 109/59 Physical Exam: GENERAL: The patient is well-developed well-nourished male lying on stretcher not appearing to be in acute distress. [] HEENT: Normocephalic. Atraumatic. Extraocular motions are intact. Patient has moist mucous membranes. NECK: Supple. Trachea midline CHEST/LUNGS: Clear to auscultation. There is no respiratory distress noted. HEART/CARDIOVASCULAR: Regular. There is tachycardia. There is no gallop rub or murmur. ABDOMEN: Abdomen is soft, nontender. Patient has normal bowel sounds. There is no abdominal distention. SKIN: There is no rash. There is no edema. There is no diaphoresis. NEURO: The patient is awake, alert, and oriented. The patient is cooperative. The patient has normal speech MUSCULOSKELETAL: There is no evidence of acute injury. RECTAL: Guaiac positive melanotic stool ED Course Vital Signs 05/17/16 14:20 Temperature 97.9 F Pulse Rate 104 H Respiratory 16 Rate Blood Pressure 109/59 - Consultations Consultation #1: 05/17/16 15:34 GI paged 05/17/16 16:[address] Hadley-states he will evaluate. Recommends notifying interventional radiology of patient's presentation Interventional radiology paged 05/17/16 17:[address] Nguyễn. States will consult on patient ED Medical Decision Making - Lab Data Result diagrams: 05/17/16 15:39 05/17/16 15:39 Laboratory Tests 05/17/16 05/17/16 05/17/16 15:39 15:39 15:39 WBC 22.0 H RBC 2.02 L Hgb 5.6 L* Hct 17.1 L* MCV 85 MCH 28 MCHC 33 RDW 14.0 Plt Count 595 H PT 13.4 INR 1.03 APTT 28.3 VBG pH Sodium 138 Potassium 3.7 Chloride 94.4 L Carbon Dioxide 32 H Anion Gap 15 BUN 22 H Creatinine 0.8 Estimated GFR > 60 BUN/Creatinine Ratio 27.50 Glucose 344 H Calcium 8.9 Total Creatine Kinase 32 L CK-MB (CK-2) < 1.0 CK-MB (CK-2) Rel Index 3.1 Troponin T < 0.010 05/17/16 15:39 WBC RBC Hgb Hct MCV MCH MCHC RDW Plt Count PT INR APTT VBG pH 7.399 Sodium Potassium Chloride Carbon Dioxide Anion Gap BUN Creatinine Estimated GFR BUN/Creatinine Ratio Glucose Calcium Total Creatine Kinase CK-MB (CK-2) CK-MB (CK-2) Rel Index Troponin T - EKG Data -: EKG Interpreted by Me EKG shows normal: sinus rhythm Rate: tachycardia - EKG Data When compared to previous EKG there are: previous EKG unavailable - Differential Diagnosis upper GI bleed Critical Care Time: Yes Critical care time in (mins) excluding proc time.: 30 Critical care attestation.: If time is entered above; I have spent that time in minutes in the direct care of this critically ill patient, excluding procedure time. ED Disposition Clinical Impression: Upper GI bleed, Melena, Acute blood loss anemia, Symptomatic anemia Disposition: OP ADMITTED IP TO THIS HOSP Is pt being admited?: Yes Does the pt Need Aspirin: No Condition: Serious Referrals: PRIMARY CARE, [Referring] - 3-5 Days Forms: Accompanied Note Time of Disposition: 16:32 (hospitalist paged)
--- NOTE | 2016-05-17 15:36 | Admit Criteria Form ---
Admission Criteria Documentation: GASTROINTESTINAL BLEEDING, UPPER Clinical Indications for Admission to Inpatient Care ( Place 'X' for any and all applicable criteria): Admission is indicated for ANY ONE of the following(1)(2)(3)(4)(5)(6): [ ]I. Active bleeding (eg, fresh voluminous blood in emesis or nasogastric aspirate) [ ]II. Associated conditions requiring hospitalization (eg, perforation, obstruction from ulcer) [ X]III. Inpatient admission required rather than observation care (Also use Gastrointestinal Bleeding, Upper: Observation Care as appropriate) because of ANY ONE of the following: [ ]a) Hemodynamic instability that is severe or persistent [X ]b) Anemia requiring inpatient admission as indicated by ALL of the following: [ X]1) Presence of significant clinical finding indicated by ANY ONE of the following: [X ]A. Tachycardia for age [ ]B. Orthostatic vital sign changes [ ]C. Cognitive impairment [ ]D. Heart failure [ ]E. Chest pain [ ]F. Exertional dyspnea [ ]G. Other findings suggesting inadequate perfusion (eg, peripheral or myocardial ischemia, end organ dysfunction) [X ]2) Initial (eg, emergency department, observation care) treatment with transfusion or volume replacement is judged inappropriate (due to severity of the finding) or has been ineffective [ ]c) Severe pain requiring acute inpatient management [ ]d) High-risk low platelet count [ ]e) IV fluid to replace significant ongoing losses (greater than 3 L/m2 per day) [ ]f) Immediate inpatient surgery [ X]g) Other condition, treatment or monitoring requiring inpatient admission [ ]IV. Severe liver disease (eg, cirrhosis) [ ]V. Significant active comorbid disease [ ]. Anticoagulation therapy [ ]VII. High-risk endoscopic features (arterial bleeding, adherent clot, nonbleeding visible vessel, varices, flat red spots, ulcer size greater than 2 cm, or portal hypertensive gastropathy) [ ]VIII. Previous aortic graft placement or known aortic aneurysm [ ]IX. Coagulopathy [ ]X. Syncope Extended stay beyond goal length of stay may be needed for(1)(2): [ ]a) Emergency surgery [ ]b) Varices [ ]c) Coagulation abnormalities [ ]d) Recurrent, obscure, or persistent bleeding or continued Hemodynamic instability [ ]e) Associated conditions requiring surgery (eg, perforated gastric ulcer, gastric outlet obstruction) [ ]f) Active comorbidities (eg, renal insufficiency, heart failure, pre- existing liver disease) The original [email or web address] content created by [facility] [employer] has been revised. The portions of the content which have been revised are identified through the use of italic text or in bold, and [facility] has neither reviewed nor approved the modified material. All other unmodified content is copyright [facility] [employer]. Please see references footnoted in the original [facility] [employer] edition 2016 Admission Criteria Met: Yes
[2016-05-17] MEDS: PROTONIX 80 MG in NACL 0.9% 100 ML IV SCH (16:12)
[2016-05-17 16:19] LABS: Mean Corpuscular HGB Conc 33 % (32-34); Mean Corpuscular Hemoglobin 28 pg (28-32); Mean Corpuscular Volume 85 fl (84-94); Platelet Count 595 K/mm3 (140-440); Red Blood Count 2.02 M/mm3 (3.65-5.03)
[2016-05-17 16:22] LABS: INR 1.03 (0.87-1.13); Partial Thromboplastin Time 28.3 Sec. (24.2-36.6)
[2016-05-17 16:25] LABS: Hemoglobin 5.6 gm/dl (11.8-15.2)
[2016-05-17 16:26] LABS: Hematocrit 17.1 % (35.5-45.6)
[2016-05-17] MEDS ORDERED: NACL 0.9% 500 ML 500 ML IV ONE (16:28)
[2016-05-17 16:30] LABS: Creatine Kinase MB < 1.0 ng/mL (0.0-4.0)
[2016-05-17 16:31] LABS: Anion Gap 15 mmol/L; Blood Urea Nitrogen 22 mg/dL (9-20); Calcium 8.9 mg/dL (8.4-10.2); Carbon Dioxide 32 mmol/L (22-30); Chloride 94.4 mmol/L (98-107); Creatine Kinase 32 units/L (55-170); Glucose 344 mg/dL (75-100); Potassium 3.7 mmol/L (3.6-5.0); Sodium 138 mmol/L (137-145)
[2016-05-17 17:54] LABS: Blastocytes % (Manual) 0 %
[2016-05-17 17:55] LABS: Anisocytosis 1+; Basophils % (Manual) 0 % (0.0-1.8); Eosinophils % (Manual) 0 % (0.0-4.3); Hypochromasia 1+; Large Platelets 1+
[2016-05-17 17:56] LABS: Diff Status Complete; Platelet Estimate Appe
[2016-05-17] MEDS ORDERED: NACL 0.9% 500 ML 500 ML IV NR (18:48)
[2016-05-17] MEDS ORDERED: MILK OF MAGNESIA PO PRN (18:49)
[2016-05-17] MEDS ORDERED: TYLENOL PO PRN (18:49)
[2016-05-17] MEDS ORDERED: ZOFRAN IV PRN (18:49)
[2016-05-17] MEDS ORDERED: DULCOLAX PR PRN (18:49)
[2016-05-17] MEDS ORDERED: D50W (25GM) IV PRN (18:54)
--- NOTE | 2016-05-17 18:56 | History and Physical Report ---
History of Present Illness Chief complaint: Melena History of present illness: 70-year-old male with a past medical history of peptic ulcer disease who was recently admitted for anemia due to acute blood loss from peptic ulcers, he had recently gotten EGD and mesenteric embolization. He presents acutely with dizziness upon standing and then had multiple episodes of melanotic stools. Prompting to come back on to the hospital. Past History Past Medical History: other (hypertension, diabetes, GERD, peptic ulcer disease , history of upper GI bleed) Past Surgical History: Other (EGD, mesenteric embolization) Social history: smoking, alcohol abuse Family history: no significant family history Medications and Allergies Allergies Allergy/AdvReac Type Severity Reaction Status Date / Time No Known Allergies Allergy Unverified 05/04/16 16:26 Home Medications Medication Instructions Recorded Confirmed Last Taken Type glipiZIDE [Glucotrol] 5 mg PO BID 05/04/16 05/17/16 1 Day Ago History 5 Atorvastatin Calcium [Lipitor] 20 mg PO QHS #30 tablet 05/06/16 05/17/16 Unknown Rx Lisinopril [Zestril TAB] 5 mg PO QDAY #30 tablet 05/06/16 05/17/16 Unknown Rx Sucralfate [Carafate] 1 gm PO Q6HR #120 udc 05/06/16 05/17/16 Unknown Rx Pantoprazole [Protonix TAB] 40 mg PO BID #60 tablet 05/12/16 05/17/16 Unknown Rx Active Meds: Active Medications Acetaminophen (Tylenol) 650 mg PO Q4H PRN PRN Reason: Pain MILD(1-3)/Fever >100.5/WHALEY Bisacodyl (Dulcolax) 10 mg [place] QDAY PRN PRN Reason: Constipation unrelieved by MOM Pantoprazole Sodium 80 mg/ (Sodium Chloride) 100 mls @ 10 mls/hr IV Q10H JAYSHREE PRN Reason: 8 MG/HR Last Admin: 05/17/16 16:12 Dose: 10 mls/hr Sodium Chloride (Nacl 0.9% 1000 Ml) 1,000 mls @ 42 mls/hr IV DIRECT JAYSHREE Sodium Chloride (Nacl 0.9% 500 Ml) 500 mls @ 0 mls/hr IV ONCE ONE PRN Reason: As Directed Stop: 05/17/16 18:49 Magnesium Hydroxide (Milk Of Magnesia) 30 ml PO Q4H PRN PRN Reason: Constipation Ondansetron HCl (Zofran) 4 mg IV Q8H PRN PRN Reason: N/V unrelieved by Reglan Review of Systems All systems: negative (I stated in HPI) Exam - Constitutional Vitals: Temp Pulse Resp BP Pulse Ox 98.2 F 102 H 16 116/78 99 05/17/16 18:42 05/17/16 18:42 05/17/16 18:42 05/17/16 18:42 05/17/16 18:42 General appearance: Present: no acute distress, well-nourished - EENT Eyes: Present: PERRL. Absent: conjunctival injection (pale conjunctiva) ENT: hearing intact, clear oral mucosa - Neck Neck: Present: supple, normal ROM - Respiratory Respiratory effort: normal Respiratory: bilateral: CTA - Cardiovascular Heart Sounds: Present: S1 & S2. Absent: rub, click - Extremities Extremities: pulses symmetrical, No edema Peripheral Pulses: within normal limits - Abdominal General gastrointestinal: Present: soft, non-tender, non-distended, normal bowel sounds Male genitourinary: Present: normal - Integumentary Integumentary: Present: clear, warm, dry - Musculoskeletal Musculoskeletal: gait normal, strength equal bilaterally - Psychiatric Psychiatric: appropriate mood/affect, intact judgment & insight - Neurologic Neurologic: CNII-XII intact, moves all extremities Results - Labs CBC & Chem 7: 05/18/16 05:17 05/18/16 05:17 Labs: Laboratory Last Values WBC 22.0 K/mm3 (4.5-11.0) H 05/17/16 15:39 RBC 2.02 M/mm3 (3.65-5.03) L 05/17/16 15:39 Hgb 5.6 gm/dl (11.8-15.2) L* 05/17/16 15:39 Hct 17.1 % (35.5-45.6) L* 05/17/16 15:39 MCV 85 fl (84-94) 05/17/16 15:39 MCH 28 pg (28-32) 05/17/16 15:39 MCHC 33 % (32-34) 05/17/16 15:39 RDW 14.0 % (13.2-15.2) 05/17/16 15:39 Plt Count 595 K/mm3 (140-440) H 05/17/16 15:39 Add Manual Diff Complete 05/17/16 15:39 Total Counted 100 05/17/16 15:39 Seg Neuts % (Manual) 89.0 % (40.0-70.0) H 05/17/16 15:39 Band Neutrophils % 0 % 05/17/16 15:39 Lymphocytes % (Manual) 8.0 % (13.4-35.0) L 05/17/16 15:39 Reactive Lymphs % (Man) 0 % 05/17/16 15:39 Monocytes % (Manual) 3.0 % (0.0-7.3) 05/17/16 15:39 Eosinophils % (Manual) 0 % (0.0-4.3) 05/17/16 15:39 Basophils % (Manual) 0 % (0.0-1.8) 05/17/16 15:39 Metamyelocytes % 0 % 05/17/16 15:39 Myelocytes % 0 % 05/17/16 15:39 Promyelocytes % 0 % 05/17/16 15:39 Blast Cells % 0 % 05/17/16 15:39 Nucleated RBC % Not Reportable 05/17/16 15:39 Seg Neutrophils # Man 19.6 K/mm3 (1.8-7.7) H 05/17/16 15:39 Band Neutrophils # 0.0 K/mm3 05/17/16 15:39 Lymphocytes # (Manual) 1.8 K/mm3 (1.2-5.4) 05/17/16 15:39 Abs React Lymphs (Man) 0.0 K/mm3 05/17/16 15:39 Monocytes # (Manual) 0.7 K/mm3 (0.0-0.8) 05/17/16 15:39 Eosinophils # (Manual) 0.0 K/mm3 (0.0-0.4) 05/17/16 15:39 Basophils # (Manual) 0.0 K/mm3 (0.0-0.1) 05/17/16 15:39 Metamyelocytes # 0.0 K/mm3 05/17/16 15:39 Myelocytes # 0.0 K/mm3 05/17/16 15:39 Promyelocytes # 0.0 K/mm3 05/17/16 15:39 Blast Cells # 0.0 K/mm3 05/17/16 15:39 WBC Morphology Not Reportable 05/17/16 15:39 Hypersegmented Neuts Not Reportable 05/17/16 15:39 Hyposegmented Neuts Not Reportable 05/17/16 15:39 Hypogranular Neuts Not Reportable 05/17/16 15:39 Smudge Cells Not Reportable 05/17/16 15:39 Toxic Granulation Not Reportable 05/17/16 15:39 Toxic Vacuolation Not Reportable 05/17/16 15:39 Dohle Bodies Not Reportable 05/17/16 15:39 Pelger-Huet Anomaly Not Reportable 05/17/16 15:39 Radha Rods Not Reportable 05/17/16 15:39 Platelet Estimate Appe 05/17/16 15:39 Clumped Platelets Not Reportable 05/17/16 15:39 Plt Clumps, EDTA Not Reportable 05/17/16 15:39 Large Platelets 1+ 05/17/16 15:39 Giant Platelets Not Reportable 05/17/16 15:39 Platelet Satelliting Not Reportable 05/17/16 15:39 Plt Morphology Comment Not Reportable 05/17/16 15:39 RBC Morphology Not Reportable 05/17/16 15:39 Dimorphic RBCs Not Reportable 05/17/16 15:39 Polychromasia Not Reportable 05/17/16 15:39 Hypochromasia 1+ 05/17/16 15:39 Poikilocytosis Not Reportable 05/17/16 15:39 Anisocytosis 1+ 05/17/16 15:39 Microcytosis Not Reportable 05/17/16 15:39 Macrocytosis Not Reportable 05/17/16 15:39 Spherocytes Not Reportable 05/17/16 15:39 Pappenheimer Bodies Not Reportable 05/17/16 15:39 Sickle Cells Not Reportable 05/17/16 15:39 Target Cells Not Reportable 05/17/16 15:39 Tear Drop Cells Not Reportable 05/17/16 15:39 Ovalocytes Not Reportable 05/17/16 15:39 Helmet Cells Not Reportable 05/17/16 15:39 Loaiza-Gladstone Bodies Not Reportable 05/17/16 15:39 [place] Rings Not Reportable 05/17/16 15:39 [place] Cells Not Reportable 05/17/16 15:39 Bite Cells Not Reportable 05/17/16 15:39 Crenated Cell Not Reportable 05/17/16 15:39 Elliptocytes Not Reportable 05/17/16 15:39 Acanthocytes (Spur) Not Reportable 05/17/16 15:39 Rouleaux Not Reportable 05/17/16 15:39 Hemoglobin C Crystals Not Reportable 05/17/16 15:39 Schistocytes Not Reportable 05/17/16 15:39 Malaria parasites Not Reportable 05/17/16 15:39 Dick Bodies Not Reportable 05/17/16 15:39 Hem Pathologist Commnt No 05/17/16 15:39 PT 13.4 Sec. (12.2-14.9) 05/17/16 15:39 INR 1.03 (0.87-1.13) 05/17/16 15:39 APTT 28.3 Sec. (24.2-36.6) 05/17/16 15:39 VBG pH 7.399 (7.320-7.420) 05/17/16 15:39 Sodium 138 mmol/L (137-145) 05/17/16 15:39 Potassium 3.7 mmol/L (3.6-5.0) 05/17/16 15:39 Chloride 94.4 mmol/L (98-107) L 05/17/16 15:39 Carbon Dioxide 32 mmol/L (22-30) H 05/17/16 15:39 Anion Gap 15 mmol/L 05/17/16 15:39 BUN 22 mg/dL (9-20) H 05/17/16 15:39 Creatinine 0.8 mg/dL (0.8-1.5) 05/17/16 15:39 Estimated GFR > 60 ml/min 05/17/16 15:39 BUN/Creatinine Ratio 27.50 % 05/17/16 15:39 Glucose 344 mg/dL (75-100) H 05/17/16 15:39 Calcium 8.9 mg/dL (8.4-10.2) 05/17/16 15:39 Total Creatine Kinase 32 units/L (55-170) L 05/17/16 15:39 CK-MB (CK-2) < 1.0 ng/mL (0.0-4.0) 05/17/16 15:39 CK-MB (CK-2) Rel Index 3.1 (0-4) 05/17/16 15:39 Troponin T < 0.010 ng/mL (0.00-0.029) 05/17/16 15:39 Blood Type A POSITIVE 05/17/16 15:39 Antibody Screen Negative 05/17/16 15:39 Crossmatch See Detail 05/17/16 15:39 Assessment and Plan Assessment and plan: 62-year-old man with a past medical history of severe peptic ulcer disease, status post recent mesenteric embolization who presents with acute blood loss anemia due to Melanex 1. Upper GI bleed Continue PPI drip, GI consult for possible EGD, IR also consulted for possible mesenteric embolization/coiling -will resume sucrafate after EGD 2. Acute blood loss anemia Patient has been ordered for total of 3 units PRBC, recheck hemoglobin levels after transfusion 3. Diabetes Sliding scale insulin while in hospital, hold glipizide 4. Hypertension Patient has been normotensive and has had some low blood pressure, we'll hold blood pressure medications at this point, continue IV fluids and blood transfusion.
[2016-05-17] MEDS: NOVOLOG SUB-Q SCH (19:14)
--- NOTE | 2016-05-17 19:31 | Gastroenterology Consultation ---
History of Present Illness - Reason for Consult Consult date: 05/17/16 Melena Requesting physician: LIZZ CHO - History of Present Illness The patient is a 70 yo male admitted twice in the last 3 weeks for recurrent GI bleeding from a DU. This was unamenable to treatment with endoscopy, and on the 2nd admit he underwent embolization of the GDA. Now, 11 days later, he present with recurrent anemia. Although he was smoking at home, he denies NSAIDs, and says he was compliant with protonix and sucralfate. He had a bx (+ ) for H pylori on the first admit, but does not appear to have had that treated. He has no N/V/abdominal pain. He is eating well at home. The melena started acutely today and he has had 2-3 dark BMs. He felt pre-syncopal at home , but there has been no syncope. He has had no abdominal imaging. Past History Past Medical History: other (hypertension, diabetes, GERD, peptic ulcer disease , history of upper GI bleed) Past Surgical History: Other (EGD, mesenteric embolization) Social history: smoking, alcohol abuse Family history: no significant family history Medications and Allergies Allergies Allergy/AdvReac Type Severity Reaction Status Date / Time No Known Allergies Allergy Unverified 05/04/16 16:26 Home Medications Medication Instructions Recorded Confirmed Last Taken Type glipiZIDE [Glucotrol] 5 mg PO BID 05/04/16 05/17/16 1 Day Ago History 5 Atorvastatin Calcium [Lipitor] 20 mg PO QHS #30 tablet 05/06/16 05/17/16 Unknown Rx Lisinopril [Zestril TAB] 5 mg PO QDAY #30 tablet 05/06/16 05/17/16 Unknown Rx Sucralfate [Carafate] 1 gm PO Q6HR #120 udc 05/06/16 05/17/16 Unknown Rx Pantoprazole [Protonix TAB] 40 mg PO BID #60 tablet 05/12/16 05/17/16 Unknown Rx Active Meds: Active Medications Acetaminophen (Tylenol) 650 mg PO Q4H PRN PRN Reason: Pain MILD(1-3)/Fever >100.5/WHALEY Bisacodyl (Dulcolax) 10 mg [place] QDAY PRN PRN Reason: Constipation unrelieved by MOM Dextrose (D50w (25gm)) 50 ml IV PRN PRN PRN Reason: Hypoglycemia Pantoprazole Sodium 80 mg/ (Sodium Chloride) 100 mls @ 10 mls/hr IV Q10H JAYSHREE PRN Reason: 8 MG/HR Last Admin: 05/17/16 16:12 Dose: 10 mls/hr Sodium Chloride (Nacl 0.9% 1000 Ml) 1,000 mls @ 42 mls/hr IV DIRECT JAYSHREE Sodium Chloride (Nacl 0.9% 500 Ml) 500 mls @ 0 mls/hr IV ONCE NR PRN Reason: As Directed Stop: 05/17/16 23:59 Insulin Aspart (Novolog) 0 units SUB-Q ACHS JAYSHREE PRN Reason: Protocol Last Admin: 05/17/16 19:14 Dose: 4 units Magnesium Hydroxide (Milk Of Magnesia) 30 ml PO Q4H PRN PRN Reason: Constipation Ondansetron HCl (Zofran) 4 mg IV Q8H PRN PRN Reason: N/V unrelieved by Reglan Review of Systems - Review of Systems All systems: negative (as noted in the HPI) Exam - Constitutional Vital Signs: Temp Pulse Resp BP Pulse Ox 98.2 F 102 H 16 116/78 99 05/17/16 18:42 05/17/16 18:42 05/17/16 18:42 05/17/16 18:42 05/17/16 18:42 General appearance: no acute distress - EENT Eyes: PERRL, EOM intact ENT: hearing intact, clear oral mucosa, no thrush - Neck Neck: supple, normal ROM - Respiratory Respiratory effort: normal Respiratory: bilateral: CTA - Cardiovascular Rhythm: regular Heart Sounds: Present: S1 & S2 Extremities: no ischemia, No edema - Gastrointestinal General gastrointestinal: Present: soft, non-tender, non-distended - Integumentary Integumentary: Present: clear, warm, dry - Neurologic Neurological: alert and oriented x3 - Labs CBC & Chem 7: 05/17/16 15:39 05/17/16 15:39 Lab Results: Laboratory Results - last 24 hr 05/17/16 19:10 POC Glucose 315 H Assessment and Plan - Patient Problems (1) Duodenal ulcer with hemorrhage Current Visit: Yes Status: Acute Plan to address problem: - Persistent DU with hemorrage x 2 weeks despite endoscopy and IR/embolization as well as compliance with meds. - Will get CT scan to re-assure no mass lesion eroding into the bowel. - Continue protonix as you are doing. - Repeat EGD tomorrow; if ulcer still severe, would consult surgery. - Consider treating H pylori, but in the acute ulcer setting, this is usually not beneficial at preventing bleeding. - Continue sucralfate as well. - Patient must d/c smoking.
[2016-05-17] MEDS ORDERED: NACL ONE (19:32)
[2016-05-18] MEDS ORDERED: NACL ONE (05:00)
[2016-05-18] MEDS: PROTONIX 80 MG in NACL 0.9% 100 ML IV SCH ×2 (05:30→17:37)
[2016-05-18 05:46] LABS: Basophils % (Auto) 0.2 % (0.0-1.8); Eosinophils % (Auto) 1.7 % (0.0-4.3); Hematocrit 25.2 % (35.5-45.6); Hemoglobin 8.6 gm/dl (11.8-15.2); Mean Corpuscular HGB Conc 34 % (32-34); Mean Corpuscular Hemoglobin 29 pg (28-32); Mean Corpuscular Volume 86 fl (84-94); Platelet Count 454 K/mm3 (140-440); Red Blood Count 2.95 M/mm3 (3.65-5.03); Red Cell Distribution Width 14.2 % (13.2-15.2); White Blood Count 15.5 K/mm3 (4.5-11.0)
[2016-05-18 06:05] LABS: Anion Gap 17 mmol/L; BUN/Creatinine Ratio 8.75; Blood Urea Nitrogen 7 mg/dL (9-20); Calcium 8.1 mg/dL (8.4-10.2); Carbon Dioxide 29 mmol/L (22-30); Chloride 95.8 mmol/L (98-107); Glucose 314 mg/dL (75-100); Potassium 3.3 mmol/L (3.6-5.0); Sodium 138 mmol/L (137-145)
[2016-05-18] MEDS: NOVOLOG SUB-Q SCH ×3 (06:12→23:48)
--- NOTE | 2016-05-18 07:04 | Cat Scan Report ---
FINAL REPORT PROCEDURE: CT ABDOMEN PELVIS W CON TECHNIQUE: Computerized axial tomography of the abdomen and pelvis was performed after the IV injection of iodinated nonionic contrast. HISTORY: persistent DU despite therapy; r/o infiltration COMPARISON: No prior studies are available for comparison. FINDINGS: Visualized lower thorax: There is moderate atelectasis in the right lower lung.. Liver: Normal size and attenuation. Spleen: Normal size and attenuation. Gallbladder and biliary system: There is some pericholecystic fluid. The gallbladder lumen has a normal size. No stones are seen. Further evaluation with ultrasound and HIDA scan may be appropriate.. Pancreas: Normal. Adrenals: Normal. Kidneys: Normal. GI tract: No evidence of obstruction. No ileus or enteritis. The appendix is not visualized on this study. Colon is normal.. Lymph nodes and mesentery: Normal. Vasculature: Mild atherosclerosis of the aorta and branching vessels.. Bladder: The urinary bladder is distended.. Reproductive organs: Normal. Peritoneum: No free fluid. Musculoskeletal structures: No significant abnormality. Other: None. IMPRESSION: There is no evidence of intestinal or urinary tract obstruction. No ileus or enteritis. There is some pericholecystic fluid around the gallbladder. No stones are identified. Further evaluation with ultrasound and HIDA scan may be appropriate. Atelectasis and possible slight infiltrate right lower lung.
[2016-05-18 08:18] LABS: Bilirubin,Urine NEG (Negative); Blood,Urine NEG (Negative); Ketones,Urine NEG (Negative); Leukocyte Esterase,Urine NEG (Negative); Mucus,Urine FEW /HPF; Nitrite,Urine NEG (Negative); Protein,Urine <15 mg/dL mg/dL (Negative); Urobilinogen,Urine < 2.0 mg/dL (<2.0); WBC,Urine < 1.0 /HPF (0.0-6.0)
[2016-05-18] MEDS: NACL 0.9% 1000 ML 1,000 ML IV SCH (08:20)
[2016-05-18] MEDS ORDERED: DIPRIVAN 10 MG/ML IV ONE ×3 (14:40)
[2016-05-18] MEDS ORDERED: XYLOCAINE MPF 2% ONE (15:00)
--- NOTE | 2016-05-18 15:07 | Anesthesia Consultation ---
Anesthesia Consult and Med Hx Date of service: 05/18/16 - Airway Anesthetic Teeth Evaluation: Edentulous ROM Head & Neck: Adequate Mental/Hyoid Distance: Adequate Mallampati Class: Class II Intubation Access Assessment: Probably Good - Pulmonary Exam CTA: Yes - Cardiac Exam Cardiac Exam: RRR - Pre-Operative Health Status ASA Pre-Surgery Classification: ASA3 Proposed Anesthetic Plan: MAC - Pulmonary Hx Smoking: Yes (03/30 ppd) - Cardiovascular System Hx Hypertension: Yes (high cholesterol) - Central Nervous System Hx Psychiatric Problems: No - Gastrointestinal Hx Ulcer: Yes (PUD, recent upper GI bleed) Hx Gastroesophageal Reflux Disease: Yes - Endocrine Hx Insulin Dependent Diabetes: Yes (BS 239 at 12 05/18) - Hematic Hx Anemia: Yes (received 2 U PRBCs on 05/05/16) - Other Systems Hx Alcohol Use: Yes (2-3 cans of beer/week) Hx Cancer: No
--- NOTE | 2016-05-18 15:08 | Anesthesia Day of Surgery ---
Anesthesia Day of Surgery - Day of Surgery Patient Examined: Yes Patient H&P Reviewed: Yes Patient is NPO: Yes
--- NOTE | 2016-05-18 15:36 | Post Operative Note ---
Pre-op diagnosis: Recurrent melena, duodenal ulcer Post-op diagnosis: same Findings: EGD Esophagus: Normal Stomach: Food debris, no ulcer and no bleeding. Duodenum: Persistence of cratered duodenal ulcer, essentially occupying entire duodenal bulb. Small oozing, but likely from scope trauma. No vessel to treat. Imp: Recurrent melena, duodenal ulcer; s/p embolization, but with recurrent bleeding/anemia. Rec: 1) Cont PPI 2) OK to have clears 3) I have contacted [facility], who will evaluate Mr. Gonzalez and consider surgical options Procedure: EGD Anesthesia: MAC Surgeon: NARAYAN WEBB Estimated blood loss: minimal Pathology: none Specimen disposition: to lab Condition: critical Disposition: ICU
--- NOTE | 2016-05-18 17:41 | Consultation ---
History of Present Illness Consult date: 05/18/16 - History of present illness History of present illness: The patient is a 70M with a history of HTN who presented with multiple episodes of melena. He has had previous endoscopies over the last few weeks which have shown a duodenal ulcer that has been cauterized. He has also undergone a GDA embolization. He underwent an endoscopy today which showed a cratered duodenal ulcer but no active bleeding. He states that he has been compliant with his PPI medications at home. Past History Past Medical History: other (hypertension, diabetes, GERD, peptic ulcer disease , history of upper GI bleed) Past Surgical History: Other (EGD, mesenteric embolization) Social history: smoking, alcohol abuse Family history: no significant family history Medications and Allergies Allergies Allergy/AdvReac Type Severity Reaction Status Date / Time No Known Allergies Allergy Unverified 05/04/16 16:26 Home Medications Medication Instructions Recorded Confirmed Last Taken Type glipiZIDE [Glucotrol] 5 mg PO BID 05/04/16 05/17/16 1 Day Ago History 5 Atorvastatin Calcium [Lipitor] 20 mg PO QHS #30 tablet 05/06/16 05/17/16 Unknown Rx Lisinopril [Zestril TAB] 5 mg PO QDAY #30 tablet 05/06/16 05/17/16 Unknown Rx Sucralfate [Carafate] 1 gm PO Q6HR #120 udc 05/06/16 05/17/16 Unknown Rx Pantoprazole [Protonix TAB] 40 mg PO BID #60 tablet 05/12/16 05/17/16 Unknown Rx Active Meds: Active Medications Acetaminophen (Tylenol) 650 mg PO Q4H PRN PRN Reason: Pain MILD(1-3)/Fever >100.5/WHALEY Bisacodyl (Dulcolax) 10 mg [place] QDAY PRN PRN Reason: Constipation unrelieved by MOM Dextrose (D50w (25gm)) 50 ml IV PRN PRN PRN Reason: Hypoglycemia Pantoprazole Sodium 80 mg/ (Sodium Chloride) 100 mls @ 10 mls/hr IV Q10H JAYSHREE PRN Reason: 8 MG/HR Last Admin: 05/18/16 17:37 Dose: 8 mg/hr, 10 mls/hr Sodium Chloride (Nacl 0.9% 1000 Ml) 1,000 mls @ 42 mls/hr IV DIRECT JAYSHREE Last Admin: 05/18/16 08:20 Dose: 42 mls/hr Insulin Aspart (Novolog) 0 units SUB-Q ACHS JAYSHREE PRN Reason: Protocol Last Admin: 05/18/16 06:12 Dose: 4 units Magnesium Hydroxide (Milk Of Magnesia) 30 ml PO Q4H PRN PRN Reason: Constipation Ondansetron HCl (Zofran) 4 mg IV Q8H PRN PRN Reason: N/V unrelieved by Reglan Exam Vital Signs Temp Pulse Resp BP 97.9 F 104 H 16 109/59 05/17/16 14:20 05/17/16 14:20 05/17/16 14:20 05/17/16 14:20 - General physical appearance Positive: no distress - Eyes Positive: PERRL - Neck Positive: no masses, trachea midline - Respiratory Positive: normal expansion, clear to auscultation - Cardiovascular Rhythm: regular Heart Sounds: Present: S1 & S2 - Abdomen Abdomen: Present: soft, bowel sounds normal (non tender) Results - Labs 05/18/16 05:17 05/18/16 05:17 Abnormal lab results 05/17/16 05/18/16 05/18/16 Range/Units 19:10 05:17 05:17 WBC 15.5 H (4.5-11.0) K/mm3 RBC 2.95 L (3.65-5.03) M/mm3 Hgb 8.6 L D (11.8-15.2) gm/dl Hct 25.2 L D (35.5-45.6) % Plt Count 454 H (140-440) K/mm3 Robertson # 1.1 H (0.0-0.8) K/mm3 Seg Neutrophils % 77.8 H (40.0-70.0) % Seg Neutrophils # 12.1 H (1.8-7.7) K/mm3 Potassium 3.3 L (3.6-5.0) mmol/L Chloride 95.8 L (98-107) mmol/L BUN 7 L (9-20) mg/dL Glucose 314 H (75-100) mg/dL POC Glucose 315 H (70-105) Calcium 8.1 L (8.4-10.2) mg/dL 05/18/16 05/18/16 05/18/16 Range/Units 06:09 13:01 15:38 WBC (4.5-11.0) K/mm3 RBC (3.65-5.03) M/mm3 Hgb (11.8-15.2) gm/dl Hct (35.5-45.6) % Plt Count (140-440) K/mm3 Robertson # (0.0-0.8) K/mm3 Seg Neutrophils % (40.0-70.0) % Seg Neutrophils # (1.8-7.7) K/mm3 Potassium (3.6-5.0) mmol/L Chloride (98-107) mmol/L BUN (9-20) mg/dL Glucose (75-100) mg/dL POC Glucose 341 H 239 H 210 H (70-105) Calcium (8.4-10.2) mg/dL Diabetes panel 05/18/16 Range/Units 05:17 Sodium 138 (137-145) mmol/L Potassium 3.3 L (3.6-5.0) mmol/L Chloride 95.8 L (98-107) mmol/L Carbon Dioxide 29 (22-30) mmol/L BUN 7 L (9-20) mg/dL Creatinine 0.8 (0.8-1.5) mg/dL Glucose 314 H (75-100) mg/dL Calcium 8.1 L (8.4-10.2) mg/dL Calcium panel 05/18/16 Range/Units 05:17 Calcium 8.1 L (8.4-10.2) mg/dL Pituitary panel 05/18/16 Range/Units 05:17 Sodium 138 (137-145) mmol/L Potassium 3.3 L (3.6-5.0) mmol/L Chloride 95.8 L (98-107) mmol/L Carbon Dioxide 29 (22-30) mmol/L BUN 7 L (9-20) mg/dL Creatinine 0.8 (0.8-1.5) mg/dL Glucose 314 H (75-100) mg/dL Calcium 8.1 L (8.4-10.2) mg/dL Adrenal panel 05/18/16 Range/Units 05:17 Sodium 138 (137-145) mmol/L Potassium 3.3 L (3.6-5.0) mmol/L Chloride 95.8 L (98-107) mmol/L Carbon Dioxide 29 (22-30) mmol/L BUN 7 L (9-20) mg/dL Creatinine 0.8 (0.8-1.5) mg/dL Glucose 314 H (75-100) mg/dL Calcium 8.1 L (8.4-10.2) mg/dL Assessment and Plan 1. Continue supportive care. His current Hgb is 8.6 (after 3U of blood). Continue to monitor H/H. If Hgb continues to drop, then we will consider surgery. The surgical options were discussed with the patient.
--- NOTE | 2016-05-18 18:38 | Progress Note ---
Assessment and Plan 70-year-old male with a past medical history of peptic ulcer disease who was recently admitted for anemia due to acute blood loss from peptic ulcers, he had recently gotten EGD and mesenteric embolization. He presents acutely with dizziness upon standing and then had multiple episodes of melanotic stools. Prompting to come back on to the hospital. EGD today showed normal active bleeding. Rather cratered duodenal ulcer identified. 1. Consulted duodenal ulcer: Continue with PPIs. 2. Anemia: Secondary to acute GI bleeding prior to this admission. 3. GI bleeding status post embolization in prior admission 4. Hypokalemia: will supplement. 5. Diabetes mellitus: Continue with sliding scale insulin. 6. Leukocytosis: Reactive. Trending downwards. Anticipate resolution Subjective Date of service: 05/18/16 Principal diagnosis: GI bleeding Interval history: Denies any abdominal pain. Has melena stool. Objective - Constitutional Vitals: Vital Signs - 12hr 05/18/16 05/18/16 05/18/16 06:49 07:55 08:00 Temperature Pulse Rate 90 89 Pulse Rate [ Right Radial] Respiratory 15 15 Rate Blood Pressure 145/85 143/83 Blood Pressure [Right Arm] O2 Sat by Pulse 100 100 100 Oximetry 05/18/16 05/18/16 05/18/16 08:11 08:21 08:31 Temperature Pulse Rate 84 82 83 Pulse Rate [ Right Radial] Respiratory 15 15 15 Rate Blood Pressure 143/83 143/83 132/83 Blood Pressure [Right Arm] O2 Sat by Pulse 100 100 100 Oximetry 05/18/16 05/18/16 05/18/16 08:41 08:51 09:01 Temperature Pulse Rate 82 80 78 Pulse Rate [ Right Radial] Respiratory 14 14 14 Rate Blood Pressure 132/83 132/83 132/83 Blood Pressure [Right Arm] O2 Sat by Pulse 100 100 100 Oximetry 05/18/16 05/18/16 05/18/16 12:00 12:55 14:50 Temperature 98.2 F 98.2 F Pulse Rate 92 H Pulse Rate [ 96 H Right Radial] Respiratory 16 13 Rate Blood Pressure 151/87 Blood Pressure 150/70 [Right Arm] O2 Sat by Pulse 100 Oximetry 05/18/16 05/18/16 05/18/16 15:14 15:29 15:44 Temperature 98.2 F Pulse Rate 82 76 83 Pulse Rate [ Right Radial] Respiratory 20 14 14 Rate Blood Pressure 99/54 110/60 153/86 Blood Pressure [Right Arm] O2 Sat by Pulse 97 100 100 Oximetry 05/18/16 05/18/16 16:00 16:14 Temperature 97.8 F 98.2 F Pulse Rate 92 H Pulse Rate [ Right Radial] Respiratory 13 Rate Blood Pressure 151/87 Blood Pressure [Right Arm] O2 Sat by Pulse 100 Oximetry General appearance: Present: no acute distress - EENT Eyes: PERRL, EOM intact ENT: hearing intact, clear oral mucosa Ears: bilateral: normal - Neck Neck: supple, normal ROM - Respiratory Respiratory effort: normal Respiratory: bilateral: CTA - Breasts Breasts: normal - Cardiovascular Rhythm: regular Heart Sounds: Present: S1 & S2. Absent: gallop, rub Extremities: pulses intact, No edema, normal color, Full ROM - Gastrointestinal General gastrointestinal: Present: soft, non-tender, non-distended, normal bowel sounds - Genitourinary Male genitourinary: normal - Integumentary Integumentary: clear, warm, dry - Musculoskeletal Musculoskeletal: 1, strength equal bilaterally - Neurologic Neurologic: moves all extremities - Psychiatric Psychiatric: memory intact, appropriate mood/affect, intact judgment & insight - Labs CBC & Chem 7: 05/18/16 05:17 05/18/16 05:17 Labs: Abnormal lab results 05/17/16 05/18/16 05/18/16 Range/Units 19:10 05:17 05:17 WBC 15.5 H (4.5-11.0) K/mm3 RBC 2.95 L (3.65-5.03) M/mm3 Hgb 8.6 L D (11.8-15.2) gm/dl Hct 25.2 L D (35.5-45.6) % Plt Count 454 H (140-440) K/mm3 [place] # 1.1 H (0.0-0.8) K/mm3 Seg Neutrophils % 77.8 H (40.0-70.0) % Seg Neutrophils # 12.1 H (1.8-7.7) K/mm3 Potassium 3.3 L (3.6-5.0) mmol/L Chloride 95.8 L (98-107) mmol/L BUN 7 L (9-20) mg/dL Glucose 314 H (75-100) mg/dL POC Glucose 315 H (70-105) Calcium 8.1 L (8.4-10.2) mg/dL 05/18/16 05/18/16 05/18/16 Range/Units 06:09 13:01 15:38 WBC (4.5-11.0) K/mm3 RBC (3.65-5.03) M/mm3 Hgb (11.8-15.2) gm/dl Hct (35.5-45.6) % Plt Count (140-440) K/mm3 [place] # (0.0-0.8) K/mm3 Seg Neutrophils % (40.0-70.0) % Seg Neutrophils # (1.8-7.7) K/mm3 Potassium (3.6-5.0) mmol/L Chloride (98-107) mmol/L BUN (9-20) mg/dL Glucose (75-100) mg/dL POC Glucose 341 H 239 H 210 H (70-105) Calcium (8.4-10.2) mg/dL
--- NOTE | 2016-05-18 19:10 | Operative Report ---
PROCEDURE PERFORMED: Upper endoscopy. PREOPERATIVE DIAGNOSES: Recurrent melena, acute duodenal ulcer. POSTOPERATIVE DIAGNOSES: Recurrent melena, acute duodenal ulcer. ANESTHESIA: Via monitored anesthesia care. HISTORY: A 70-year-old gentleman admitted with recurrent melena and anemia. He had prior upper endoscopies with evidence of a large duodenal ulcer and subsequently underwent IR embolization. He is now hospitalized a third time with recurrent melena and acute blood loss anemia. DESCRIPTION OF PROCEDURE: After informed consent was obtained, the patient was placed in left lateral decubitus position. Standard Fujinon upper endoscope was inserted into the mouth and advanced to the second portion of duodenum. Scope was then carefully withdrawn and the mucosa was carefully examined. FINDINGS: Esophagus appeared normal. Stomach: There was food debris in the body of the stomach, but there was no evidence of ulcer and no evidence of bleeding. Duodenum: There is persistence of her cratered large duodenal ulcer, essentially occupying the entire duodenal bulb. There was a small amount of oozing, but this is likely as a result of scope trauma attempting to traverse the ulcer to examine the remaining portion of the duodenum. There was no visible vessel to treat in the visualized ulcer. The remaining portion of the duodenum appeared normal. COMPLICATIONS: None. ESTIMATED BLOOD LOSS: Minimal. IMPRESSION: A 70-year-old gentleman admitted with recurrent melena and acute blood loss anemia. He is status post upper endoscopy today with identification of the persistence of the known duodenal ulcer. He is status post prior embolization, but given his recurrent bleeding and anemia, I feel that further evaluation is necessary. RECOMMENDATIONS: 1. Continue proton pump inhibitor therapy. 2. Okay for him to have clear liquid diet. 3. I have contacted surgery self who will evaluate the patient and consider surgical options given his recurrent bleeding. JOB# [id number] HUONG/NTS
[2016-05-18] MEDS: CARAFATE PO SCH (23:04)
[2016-05-18] MEDS: ZESTRIL PO SCH (23:04)
[2016-05-18] MEDS: KCL 10MEQ/100ML 10 MEQ/100 ML BAG IV SCH (23:04)
[2016-05-19] MEDS ORDERED: KCL 10MEQ/100ML 10 MEQ/100 ML BAG IV ONE (00:34)
[2016-05-19] MEDS: NOVOLOG SUB-Q SCH ×7 (00:40→21:55)
[2016-05-19] MEDS: KCL 10MEQ/100ML 10 MEQ/100 ML BAG IV SCH ×2 (00:41→22:37)
[2016-05-19] MEDS: PROTONIX 80 MG in NACL 0.9% 100 ML IV SCH ×3 (00:42→23:38)
[2016-05-19] MEDS: CARAFATE PO SCH ×4 (02:43→17:05)
[2016-05-19 06:11] LABS: Basophils % (Auto) 0.2 % (0.0-1.8); Eosinophils % (Auto) 1.8 % (0.0-4.3); Hematocrit 30.5 % (35.5-45.6); Hemoglobin 10.3 gm/dl (11.8-15.2); Mean Corpuscular HGB Conc 34 % (32-34); Mean Corpuscular Hemoglobin 29 pg (28-32); Mean Corpuscular Volume 85 fl (84-94); Platelet Count 537 K/mm3 (140-440); Red Blood Count 3.59 M/mm3 (3.65-5.03); Red Cell Distribution Width 14.1 % (13.2-15.2); White Blood Count 14.4 K/mm3 (4.5-11.0)
[2016-05-19 06:41] LABS: Alanine Aminotransferase 9 units/L (7-56); Albumin 2.7 g/dL (3.9-5); Albumin/Globulin Ratio 0.8 %; Alkaline Phosphatase 120 units/L (35-129); Anion Gap 17 mmol/L; BUN/Creatinine Ratio 6.66; Bilirubin,Total 0.4 mg/dL (0.1-1.2); Blood Urea Nitrogen 4 mg/dL (9-20); Calcium 8.7 mg/dL (8.4-10.2); Carbon Dioxide 28 mmol/L (22-30); Chloride 94.4 mmol/L (98-107); Glucose 184 mg/dL (75-100); Potassium 3.4 mmol/L (3.6-5.0); Sodium 136 mmol/L (137-145); Total Protein 6.2 g/dL (6.3-8.2)
[2016-05-19] MEDS: ZESTRIL PO SCH (09:13)
--- NOTE | 2016-05-19 11:20 | Progress Note ---
Assessment and Plan Assessment and Plan 1. Duodenal ulcer: Continue with PPIs, sucralfate. 2. Anemia: Secondary to acute GI bleeding prior to this admission. 3. GI bleeding status post embolization in prior admission 4. Hypokalemia: Supplementing. 5. Diabetes mellitus: Sliding scale insulin. 6. Reactive Leukocytosis: Trending downwards. Subjective Date of service: 05/19/16 Principal diagnosis: GI bleeding Interval history: No overnight events. No active GI bleeding. Objective - Constitutional Vitals: Vital Signs - 12hr 05/19/16 05/19/16 05/19/16 03:50 05:33 07:32 Temperature 98.6 F 98.1 F Pulse Rate [ 89 82 86 Right Radial] Respiratory 18 18 12 Rate Blood Pressure Blood Pressure 127/78 139/80 [Right Arm] O2 Sat by Pulse 100 100 97 Oximetry 05/19/16 09:13 Temperature Pulse Rate [ Right Radial] Respiratory Rate Blood Pressure 139/80 Blood Pressure [Right Arm] O2 Sat by Pulse Oximetry General appearance: Present: no acute distress, well-nourished - EENT Eyes: PERRL, EOM intact ENT: hearing intact, clear oral mucosa Ears: bilateral: normal - Neck Neck: supple, normal ROM - Respiratory Respiratory effort: normal Respiratory: bilateral: CTA - Breasts Breasts: normal - Cardiovascular Rhythm: regular Heart Sounds: Present: S1 & S2. Absent: gallop, rub Extremities: pulses intact, No edema, normal color, Full ROM - Gastrointestinal General gastrointestinal: Present: soft, non-tender, non-distended, normal bowel sounds - Genitourinary Male genitourinary: normal - Integumentary Integumentary: clear, warm, dry - Musculoskeletal Musculoskeletal: 1, strength equal bilaterally - Neurologic Neurologic: moves all extremities - Psychiatric Psychiatric: memory intact, appropriate mood/affect, intact judgment & insight - Labs CBC & Chem 7: 05/19/16 05:46 05/19/16 05:46 Labs: Abnormal lab results 05/18/16 05/18/16 05/18/16 Range/Units 13:01 15:38 23:19 WBC (4.5-11.0) K/mm3 RBC (3.65-5.03) M/mm3 Hgb (11.8-15.2) gm/dl Hct (35.5-45.6) % Plt Count (140-440) K/mm3 Lymph % (Auto) (13.4-35.0) % [place] # (0.0-0.8) K/mm3 Seg Neutrophils % (40.0-70.0) % Seg Neutrophils # (1.8-7.7) K/mm3 Sodium (137-145) mmol/L Potassium (3.6-5.0) mmol/L Chloride (98-107) mmol/L BUN (9-20) mg/dL Creatinine (0.8-1.5) mg/dL Glucose (75-100) mg/dL POC Glucose 239 H 210 H 229 H (70-105) Total Protein (6.3-8.2) g/dL Albumin (3.9-5) g/dL 05/19/16 05/19/16 05/19/16 Range/Units 05:46 05:46 06:04 WBC 14.4 H (4.5-11.0) K/mm3 RBC 3.59 L (3.65-5.03) M/mm3 Hgb 10.3 L (11.8-15.2) gm/dl Hct 30.5 L (35.5-45.6) % Plt Count 537 H (140-440) K/mm3 Lymph % (Auto) 12.2 L (13.4-35.0) % [place] # 0.9 H (0.0-0.8) K/mm3 Seg Neutrophils % 79.7 H (40.0-70.0) % Seg Neutrophils # 11.5 H (1.8-7.7) K/mm3 Sodium 136 L (137-145) mmol/L Potassium 3.4 L (3.6-5.0) mmol/L Chloride 94.4 L (98-107) mmol/L BUN 4 L (9-20) mg/dL Creatinine 0.6 L (0.8-1.5) mg/dL Glucose 184 H (75-100) mg/dL POC Glucose 196 H (70-105) Total Protein 6.2 L (6.3-8.2) g/dL Albumin 2.7 L (3.9-5) g/dL
--- NOTE | 2016-05-19 12:50 | Progress Note ---
Assessment and Plan The patient's vitals and Hgb have been stable. Continue to monitor. Continue PPI. Subjective Date of service: 05/19/16 Narrative: The patient is resting comfortably in bed. He denies any episodes of melena. Objective Vital Signs - 12hr 05/19/16 05/19/16 05/19/16 03:50 05:33 07:32 Temperature 98.6 F 98.1 F Pulse Rate [ 89 82 86 Right Radial] Respiratory 18 18 12 Rate Blood Pressure Blood Pressure 127/78 139/80 [Right Arm] O2 Sat by Pulse 100 100 97 Oximetry 05/19/16 09:13 Temperature Pulse Rate [ Right Radial] Respiratory Rate Blood Pressure 139/80 Blood Pressure [Right Arm] O2 Sat by Pulse Oximetry - Abdomen soft, not tender (soft, NT, ND) - Labs 05/19/16 05:46 05/19/16 05:46 Diabetes panel 05/19/16 Range/Units 05:46 Sodium 136 L (137-145) mmol/L Potassium 3.4 L (3.6-5.0) mmol/L Chloride 94.4 L (98-107) mmol/L Carbon Dioxide 28 (22-30) mmol/L BUN 4 L (9-20) mg/dL Creatinine 0.6 L (0.8-1.5) mg/dL Glucose 184 H (75-100) mg/dL Calcium 8.7 (8.4-10.2) mg/dL AST 5 (5-40) units/L ALT 9 (7-56) units/L Alkaline Phosphatase 120 (35-129) units/L Total Protein 6.2 L (6.3-8.2) g/dL Albumin 2.7 L (3.9-5) g/dL Calcium panel 05/19/16 Range/Units 05:46 Calcium 8.7 (8.4-10.2) mg/dL Albumin 2.7 L (3.9-5) g/dL Pituitary panel 05/19/16 Range/Units 05:46 Sodium 136 L (137-145) mmol/L Potassium 3.4 L (3.6-5.0) mmol/L Chloride 94.4 L (98-107) mmol/L Carbon Dioxide 28 (22-30) mmol/L BUN 4 L (9-20) mg/dL Creatinine 0.6 L (0.8-1.5) mg/dL Glucose 184 H (75-100) mg/dL Calcium 8.7 (8.4-10.2) mg/dL Adrenal panel 05/19/16 Range/Units 05:46 Sodium 136 L (137-145) mmol/L Potassium 3.4 L (3.6-5.0) mmol/L Chloride 94.4 L (98-107) mmol/L Carbon Dioxide 28 (22-30) mmol/L BUN 4 L (9-20) mg/dL Creatinine 0.6 L (0.8-1.5) mg/dL Glucose 184 H (75-100) mg/dL Calcium 8.7 (8.4-10.2) mg/dL Total Bilirubin 0.4 (0.1-1.2) mg/dL AST 5 (5-40) units/L ALT 9 (7-56) units/L Alkaline Phosphatase 120 (35-129) units/L Total Protein 6.2 L (6.3-8.2) g/dL Albumin 2.7 L (3.9-5) g/dL
[2016-05-19] MEDS: NACL 0.9% 1000 ML 1,000 ML IV SCH (12:57)
--- NOTE | 2016-05-19 14:56 | Gastroenterology Progress Note ---
Assessment and Plan 1. DU -Patient s/p EGD and emobolization, returning with continued melena and anemia -Repeat EGD on 05/18/16, Duodenum: Persistence of cratered duodenal ulcer, essentially occupying entire duodenal bulb. Small oozing, but likely from scope trauma. No vessel to treat. -Cont PPI -Continue Clear liquid diet for now -Surgery following. Monitor H/H, currently stable s/p prbc transfusion. Subjective Date of service: 05/19/16 Principal diagnosis: GI bleeding Interval history: Patient reports small amt of bleeding last PM, none today. Objective - Constitutional Vitals: Temp Pulse Resp BP Pulse Ox 98.1 F 86 12 139/80 97 05/19/16 07:32 05/19/16 07:32 05/19/16 07:32 05/19/16 09:13 05/19/16 07:32 General appearance: no acute distress - EENT Eyes: EOM intact ENT: hearing intact - Cardiovascular Rhythm: regular Heart Sounds: Present: S1 & S2 - Gastrointestinal General gastrointestinal: Present: soft, non-tender, non-distended - Integumentary Integumentary: Present: warm, dry - Labs CBC & Chem 7: 05/19/16 05:46 05/19/16 05:46 Labs: Laboratory Results - last 24 hr 05/18/16 05/18/16 05/19/16 15:38 23:19 05:46 WBC 14.4 H RBC 3.59 L Hgb 10.3 L Hct 30.5 L MCV 85 MCH 29 MCHC 34 RDW 14.1 Plt Count 537 H Lymph % (Auto) 12.2 L [place] % (Auto) 6.1 Eos % (Auto) 1.8 Baso % (Auto) 0.2 Lymph # 1.8 [place] # 0.9 H Eos # 0.3 Baso # 0.0 Seg Neutrophils % 79.7 H Seg Neutrophils # 11.5 H Sodium Potassium Chloride Carbon Dioxide Anion Gap BUN Creatinine Estimated GFR BUN/Creatinine Ratio Glucose POC Glucose 210 H 229 H Calcium Total Bilirubin AST ALT Alkaline Phosphatase Total Protein Albumin Albumin/Globulin Ratio 05/19/16 05/19/16 05:46 06:04 WBC RBC Hgb Hct MCV MCH MCHC RDW Plt Count Lymph % (Auto) [place] % (Auto) Eos % (Auto) Baso % (Auto) Lymph # [place] # Eos # Baso # Seg Neutrophils % Seg Neutrophils # Sodium 136 L Potassium 3.4 L Chloride 94.4 L Carbon Dioxide 28 Anion Gap 17 BUN 4 L Creatinine 0.6 L Estimated GFR > 60 BUN/Creatinine Ratio 6.66 Glucose 184 H POC Glucose 196 H Calcium 8.7 Total Bilirubin 0.4 AST 5 ALT 9 Alkaline Phosphatase 120 Total Protein 6.2 L Albumin 2.7 L Albumin/Globulin Ratio 0.8
[2016-05-20] MEDS: KCL 10MEQ/100ML 10 MEQ/100 ML BAG IV SCH (00:52)
[2016-05-20] MEDS: CARAFATE PO SCH ×5 (00:53→23:58)
[2016-05-20] MEDS: PROTONIX 80 MG in NACL 0.9% 100 ML IV SCH (04:00)
[2016-05-20 05:40] LABS: Basophils % (Auto) 0.3 % (0.0-1.8); Eosinophils % (Auto) 1.7 % (0.0-4.3); Hematocrit 31.6 % (35.5-45.6); Hemoglobin 10.5 gm/dl (11.8-15.2); Mean Corpuscular HGB Conc 33 % (32-34); Mean Corpuscular Hemoglobin 28 pg (28-32); Mean Corpuscular Volume 86 fl (84-94); Platelet Count 589 K/mm3 (140-440); Red Blood Count 3.68 M/mm3 (3.65-5.03); Red Cell Distribution Width 14.6 % (13.2-15.2); White Blood Count 14.2 K/mm3 (4.5-11.0)
[2016-05-20 06:00] LABS: Alanine Aminotransferase 12 units/L (7-56); Albumin 2.7 g/dL (3.9-5); Albumin/Globulin Ratio 0.8 %; Alkaline Phosphatase 110 units/L (35-129); Anion Gap 15 mmol/L; BUN/Creatinine Ratio 4.28; Bilirubin,Total 0.2 mg/dL (0.1-1.2); Blood Urea Nitrogen 3 mg/dL (9-20); Calcium 8.7 mg/dL (8.4-10.2); Carbon Dioxide 27 mmol/L (22-30); Chloride 96.5 mmol/L (98-107); Glucose 214 mg/dL (75-100); Potassium 3.5 mmol/L (3.6-5.0); Sodium 135 mmol/L (137-145); Total Protein 6.1 g/dL (6.3-8.2)
[2016-05-20] MEDS: NOVOLOG SUB-Q SCH ×4 (08:55→22:04)
--- NOTE | 2016-05-20 09:13 | Progress Note ---
Assessment and Plan - Patient Problems (1) Duodenal ulcer with hemorrhage Current Visit: Yes Status: Acute Plan to address problem: No active bleeding currently we will sign-off please re-consult as needed (2) Upper GI bleed Current Visit: Yes Status: Acute Subjective Date of service: 05/20/16 Patient Reports: Positive: feels better, other (denies melena or blood in stool) Objective Vital Signs - 12hr 05/19/16 05/20/16 22:00 08:00 Temperature 98 F Pulse Rate [ 85 Left Brachial] Pulse Rate [ 100 H Right Radial] Respiratory 18 Rate Blood Pressure 154/80 [Left Arm] O2 Sat by Pulse 99 Oximetry Vital Signs Temp 98 F 05/20/16 08:00 Pulse 85 05/20/16 08:00 Resp 18 05/20/16 08:00 BP 154/80 05/20/16 08:00 Pulse Ox 99 05/20/16 08:00 Intake & Output 05/19/16 05/20/16 05/20/16 18:59 06:59 18:59 Intake Total 1100 820 Balance 1100 820 Weight 68 kg Intake: IV 1100 200 KCL 10MEQ/100ML 10 meq In 100 100 ml @ 100 mls/hr IV Q1H JAYSHREE Rx#:[id number] NaCl 0.9% 1000 ml 1,000 1000 ml @ 42 mls/hr IV DIRECT JAYSHREE Rx#:[id number] Protonix 80 mg In NaCl 0. 100 100 9% 100 ml @ 8 MG/HR 10 mls/hr IV Q10H JAYSHREE Rx#: [id number] Other 620 Other: Total, Intake Amount 620 Voiding Method Toilet - General physical appearance no distress, other (ambulating) - Abdomen soft, not tender, not distended - Labs 05/20/16 04:37 05/20/16 04:37 Diabetes panel 05/20/16 Range/Units 04:37 Sodium 135 L (137-145) mmol/L Potassium 3.5 L (3.6-5.0) mmol/L Chloride 96.5 L (98-107) mmol/L Carbon Dioxide 27 (22-30) mmol/L BUN 3 L (9-20) mg/dL Creatinine 0.7 L (0.8-1.5) mg/dL Glucose 214 H (75-100) mg/dL Calcium 8.7 (8.4-10.2) mg/dL AST 11 (5-40) units/L ALT 12 (7-56) units/L Alkaline Phosphatase 110 (35-129) units/L Total Protein 6.1 L (6.3-8.2) g/dL Albumin 2.7 L (3.9-5) g/dL Calcium panel 05/20/16 Range/Units 04:37 Calcium 8.7 (8.4-10.2) mg/dL Albumin 2.7 L (3.9-5) g/dL Pituitary panel 05/20/16 Range/Units 04:37 Sodium 135 L (137-145) mmol/L Potassium 3.5 L (3.6-5.0) mmol/L Chloride 96.5 L (98-107) mmol/L Carbon Dioxide 27 (22-30) mmol/L BUN 3 L (9-20) mg/dL Creatinine 0.7 L (0.8-1.5) mg/dL Glucose 214 H (75-100) mg/dL Calcium 8.7 (8.4-10.2) mg/dL Adrenal panel 05/20/16 Range/Units 04:37 Sodium 135 L (137-145) mmol/L Potassium 3.5 L (3.6-5.0) mmol/L Chloride 96.5 L (98-107) mmol/L Carbon Dioxide 27 (22-30) mmol/L BUN 3 L (9-20) mg/dL Creatinine 0.7 L (0.8-1.5) mg/dL Glucose 214 H (75-100) mg/dL Calcium 8.7 (8.4-10.2) mg/dL Total Bilirubin 0.2 (0.1-1.2) mg/dL AST 11 (5-40) units/L ALT 12 (7-56) units/L Alkaline Phosphatase 110 (35-129) units/L Total Protein 6.1 L (6.3-8.2) g/dL Albumin 2.7 L (3.9-5) g/dL
--- NOTE | 2016-05-20 09:57 | Gastroenterology Progress Note ---
Assessment and Plan 1. DU -Patient s/p EGD and emobolization, returning with continued melena and anemia -No further melena x 24 hours. Patient is tolerating a full liquid diet well. -Repeat EGD on 05/18/16, Duodenum: Persistence of cratered duodenal ulcer, essentially occupying entire duodenal bulb. Small oozing, but likely from scope trauma. No vessel to treat. -Cont PPI -Advance diet to regular -Surgery with no recommendations at this time. - H/H stable. IF pateint tolerates diet well with no further bleeding and H/h remains stable, hopeful DC soon.. Subjective Date of service: 05/20/16 Principal diagnosis: GI bleeding Interval history: No further Melena, patient is tolerating diet ([place]) well. Objective - Constitutional Vitals: Temp Pulse Resp BP Pulse Ox 98 F 85 18 154/80 99 05/20/16 08:00 05/20/16 08:00 05/20/16 08:00 05/20/16 08:00 05/20/16 08:00 General appearance: no acute distress - EENT Eyes: EOM intact ENT: hearing intact - Cardiovascular Rhythm: regular Heart Sounds: Present: S1 & S2 - Gastrointestinal General gastrointestinal: Present: soft, non-tender, normal bowel sounds - Integumentary Integumentary: Present: warm, dry - Neurologic Neurological: alert and oriented x3 - Labs CBC & Chem 7: 05/20/16 04:37 05/20/16 04:37 Labs: Laboratory Results - last 24 hr 05/19/16 05/19/16 05/19/16 11:32 16:57 21:25 WBC RBC Hgb Hct MCV MCH MCHC RDW Plt Count Lymph % (Auto) [place] % (Auto) Eos % (Auto) Baso % (Auto) Lymph # [place] # Eos # Baso # Seg Neutrophils % Seg Neutrophils # Sodium Potassium Chloride Carbon Dioxide Anion Gap BUN Creatinine Estimated GFR BUN/Creatinine Ratio Glucose POC Glucose 221 H 269 H 172 H Calcium Total Bilirubin AST ALT Alkaline Phosphatase Total Protein Albumin Albumin/Globulin Ratio 05/20/16 05/20/16 05/20/16 04:37 04:37 06:35 WBC 14.2 H RBC 3.68 Hgb 10.5 L Hct 31.6 L MCV 86 MCH 28 MCHC 33 RDW 14.6 Plt Count 589 H Lymph % (Auto) 13.2 L [place] % (Auto) 6.8 Eos % (Auto) 1.7 Baso % (Auto) 0.3 Lymph # 1.9 [place] # 1.0 H Eos # 0.2 Baso # 0.0 Seg Neutrophils % 78.0 H Seg Neutrophils # 11.1 H Sodium 135 L Potassium 3.5 L Chloride 96.5 L Carbon Dioxide 27 Anion Gap 15 BUN 3 L Creatinine 0.7 L Estimated GFR > 60 BUN/Creatinine Ratio 4.28 Glucose 214 H POC Glucose 205 H Calcium 8.7 Total Bilirubin 0.2 AST 11 ALT 12 Alkaline Phosphatase 110 Total Protein 6.1 L Albumin 2.7 L Albumin/Globulin Ratio 0.8
[2016-05-20] MEDS: THERAGRAN-M Tab PO SCH (10:26)
[2016-05-20] MEDS: ZESTRIL PO SCH (10:26)
--- NOTE | 2016-05-20 13:53 | Progress Note ---
Assessment and Plan Assessment and plan: 70-year-old male with a past medical history of peptic ulcer disease who was recently admitted for anemia due to acute blood loss from peptic ulcers, he had recently gotten EGD and mesenteric embolization. He presents acutely with dizziness upon standing and then had multiple episodes of melanotic stools. Prompting to come back on to the hospital. Patient proceeded for endoscopy was noted to have persistent cratered duodenal ulcer, essentially occupying entire duodenal bulb. Small oozing, but likely from scope trauma. No vessel to treat. Surgery was consulted but did not feel patient to surgery at this time. Discussed with personnel administrator agreed that if patient has any rebleed surgery should evaluate for surgical intervention. * Upper GI bleed secondary to duodenal ulcer-status post prior embolization * Acute blood loss anemia * Diabetes mellitus * Hypertension * Hypokalemia * Thrombocytosis * Leukocytosis likely reactive Plan * Continue PPI, continue sucralfate * Replace potassium * Discussed with personnel administrator if patient does not have any rebleed and hemoglobin is stable and can be discharged * If any rebleed patient will benefit from surgical reevaluation. * Advance diet as tolerated * DVT and GI prophylaxis SCDs. * Plan of care discussed in detail with the patient. History Interval history: Follow-up GI bleed Patient seen and examined this morning in no acute distress Denies any chest pain, nausea, vomiting, diarrhea No fever noted blood pressure controlled No adverse events reported to me by nursing staff Hospitalist Physical - Physical exam Narrative exam: VITAL SIGNS: Reviewed. GENERAL: The patient appeared well nourished and normally developed. Vital signs as documented. HEAD: No signs of head trauma. EYES: Pupils are equal. Extraocular motions intact. EARS: Hearing grossly intact. MOUTH: Oropharynx is normal. NECK: No adenopathy, no JVD. CHEST: Chest with clear breath sounds bilaterally. No wheezes, rales, or rhonchi. CARDIAC: Regular rate and rhythm. S1 and S2, without murmurs, gallops, or rubs. VASCULAR: No Edema. Peripheral pulses normal and equal in all extremities. ABDOMEN: Soft, without detectable tenderness. No sign of distention. No rebound or guarding, and no masses palpated. Bowel Sounds normal. MUSCULOSKELETAL: Good range of motion of all major joints. Extremities without clubbing, cyanosis or edema. NEUROLOGIC EXAM: Alert and oriented x 3. No focal sensory or strength deficits. Speech normal. Follows commands. PSYCHIATRIC: Mood normal. SKIN: No rash or lesions. - Constitutional Vitals: Temp Pulse Resp BP Pulse Ox 98 F 85 18 154/80 99 05/20/16 08:00 05/20/16 08:00 05/20/16 08:00 05/20/16 10:26 05/20/16 08:00 General appearance: Present: no acute distress, well-nourished Results - Labs CBC & Chem 7: 05/20/16 04:37 05/20/16 04:37 Labs: Laboratory Last Values WBC 14.2 K/mm3 (4.5-11.0) H 05/20/16 04:37 RBC 3.68 M/mm3 (3.65-5.03) 05/20/16 04:37 Hgb 10.5 gm/dl (11.8-15.2) L 05/20/16 04:37 Hct 31.6 % (35.5-45.6) L 05/20/16 04:37 MCV 86 fl (84-94) 05/20/16 04:37 MCH 28 pg (28-32) 05/20/16 04:37 MCHC 33 % (32-34) 05/20/16 04:37 RDW 14.6 % (13.2-15.2) 05/20/16 04:37 Plt Count 589 K/mm3 (140-440) H 05/20/16 04:37 Lymph % (Auto) 13.2 % (13.4-35.0) L 05/20/16 04:37 [place] % (Auto) 6.8 % (0.0-7.3) 05/20/16 04:37 Eos % (Auto) 1.7 % (0.0-4.3) 05/20/16 04:37 Baso % (Auto) 0.3 % (0.0-1.8) 05/20/16 04:37 Lymph # 1.9 K/mm3 (1.2-5.4) 05/20/16 04:37 [place] # 1.0 K/mm3 (0.0-0.8) H 05/20/16 04:37 Eos # 0.2 K/mm3 (0.0-0.4) 05/20/16 04:37 Baso # 0.0 K/mm3 (0.0-0.1) 05/20/16 04:37 Add Manual Diff Complete 05/17/16 15:39 Total Counted 100 05/17/16 15:39 Seg Neutrophils % 78.0 % (40.0-70.0) H 05/20/16 04:37 Seg Neuts % (Manual) 89.0 % (40.0-70.0) H 05/17/16 15:39 Band Neutrophils % 0 % 05/17/16 15:39 Lymphocytes % (Manual) 8.0 % (13.4-35.0) L 05/17/16 15:39 Reactive Lymphs % (Man) 0 % 05/17/16 15:39 Monocytes % (Manual) 3.0 % (0.0-7.3) 05/17/16 15:39 Eosinophils % (Manual) 0 % (0.0-4.3) 05/17/16 15:39 Basophils % (Manual) 0 % (0.0-1.8) 05/17/16 15:39 Metamyelocytes % 0 % 05/17/16 15:39 Myelocytes % 0 % 05/17/16 15:39 Promyelocytes % 0 % 05/17/16 15:39 Blast Cells % 0 % 05/17/16 15:39 Nucleated RBC % Not Reportable 05/17/16 15:39 Seg Neutrophils # 11.1 K/mm3 (1.8-7.7) H 05/20/16 04:37 Seg Neutrophils # Man 19.6 K/mm3 (1.8-7.7) H 05/17/16 15:39 Band Neutrophils # 0.0 K/mm3 05/17/16 15:39 Lymphocytes # (Manual) 1.8 K/mm3 (1.2-5.4) 05/17/16 15:39 Abs React Lymphs (Man) 0.0 K/mm3 05/17/16 15:39 Monocytes # (Manual) 0.7 K/mm3 (0.0-0.8) 05/17/16 15:39 Eosinophils # (Manual) 0.0 K/mm3 (0.0-0.4) 05/17/16 15:39 Basophils # (Manual) 0.0 K/mm3 (0.0-0.1) 05/17/16 15:39 Metamyelocytes # 0.0 K/mm3 05/17/16 15:39 Myelocytes # 0.0 K/mm3 05/17/16 15:39 Promyelocytes # 0.0 K/mm3 05/17/16 15:39 Blast Cells # 0.0 K/mm3 05/17/16 15:39 WBC Morphology Not Reportable 05/17/16 15:39 Hypersegmented Neuts Not Reportable 05/17/16 15:39 Hyposegmented Neuts Not Reportable 05/17/16 15:39 Hypogranular Neuts Not Reportable 05/17/16 15:39 Smudge Cells Not Reportable 05/17/16 15:39 Toxic Granulation Not Reportable 05/17/16 15:39 Toxic Vacuolation Not Reportable 05/17/16 15:39 Dohle Bodies Not Reportable 05/17/16 15:39 Pelger-Huet Anomaly Not Reportable 05/17/16 15:39 Radha Rods Not Reportable 05/17/16 15:39 Platelet Estimate Appe 05/17/16 15:39 Clumped Platelets Not Reportable 05/17/16 15:39 Plt Clumps, EDTA Not Reportable 05/17/16 15:39 Large Platelets 1+ 05/17/16 15:39 Giant Platelets Not Reportable 05/17/16 15:39 Platelet Satelliting Not Reportable 05/17/16 15:39 Plt Morphology Comment Not Reportable 05/17/16 15:39 RBC Morphology Not Reportable 05/17/16 15:39 Dimorphic RBCs Not Reportable 05/17/16 15:39 Polychromasia Not Reportable 05/17/16 15:39 Hypochromasia 1+ 05/17/16 15:39 Poikilocytosis Not Reportable 05/17/16 15:39 Anisocytosis 1+ 05/17/16 15:39 Microcytosis Not Reportable 05/17/16 15:39 Macrocytosis Not Reportable 05/17/16 15:39 Spherocytes Not Reportable 05/17/16 15:39 Pappenheimer Bodies Not Reportable 05/17/16 15:39 Sickle Cells Not Reportable 05/17/16 15:39 Target Cells Not Reportable 05/17/16 15:39 Tear Drop Cells Not Reportable 05/17/16 15:39 Ovalocytes Not Reportable 05/17/16 15:39 Helmet Cells Not Reportable 05/17/16 15:39 [place] Bodies Not Reportable 05/17/16 15:39 [place] Rings Not Reportable 05/17/16 15:39 Javad Cells Not Reportable 05/17/16 15:39 Bite Cells Not Reportable 05/17/16 15:39 Crenated Cell Not Reportable 05/17/16 15:39 Elliptocytes Not Reportable 05/17/16 15:39 Acanthocytes (Spur) Not Reportable 05/17/16 15:39 Rouleaux Not Reportable 05/17/16 15:39 Hemoglobin C Crystals Not Reportable 05/17/16 15:39 Schistocytes Not Reportable 05/17/16 15:39 Malaria parasites Not Reportable 05/17/16 15:39 Dick Bodies Not Reportable 05/17/16 15:39 Hem Pathologist Commnt No 05/17/16 15:39 PT 13.4 Sec. (12.2-14.9) 05/17/16 15:39 INR 1.03 (0.87-1.13) 05/17/16 15:39 APTT 28.3 Sec. (24.2-36.6) 05/17/16 15:39 VBG pH 7.399 (7.320-7.420) 05/17/16 15:39 Sodium 135 mmol/L (137-145) L 05/20/16 04:37 Potassium 3.5 mmol/L (3.6-5.0) L 05/20/16 04:37 Chloride 96.5 mmol/L (98-107) L 05/20/16 04:37 Carbon Dioxide 27 mmol/L (22-30) 05/20/16 04:37 Anion Gap 15 mmol/L 05/20/16 04:37 BUN 3 mg/dL (9-20) L 05/20/16 04:37 Creatinine 0.7 mg/dL (0.8-1.5) L 05/20/16 04:37 Estimated GFR > 60 ml/min 05/20/16 04:37 BUN/Creatinine Ratio 4.28 % 05/20/16 04:37 Glucose 214 mg/dL (75-100) H 05/20/16 04:37 POC Glucose 205 (70-105) H 05/20/16 06:35 Calcium 8.7 mg/dL (8.4-10.2) 05/20/16 04:37 Total Bilirubin 0.2 mg/dL (0.1-1.2) 05/20/16 04:37 AST 11 units/L (5-40) 05/20/16 04:37 ALT 12 units/L (7-56) 05/20/16 04:37 Alkaline Phosphatase 110 units/L (35-129) 05/20/16 04:37 Total Creatine Kinase 32 units/L (55-170) L 05/17/16 15:39 CK-MB (CK-2) < 1.0 ng/mL (0.0-4.0) 05/17/16 15:39 CK-MB (CK-2) Rel Index 3.1 (0-4) 05/17/16 15:39 Troponin T < 0.010 ng/mL (0.00-0.029) 05/17/16 15:39 Total Protein 6.1 g/dL (6.3-8.2) L 05/20/16 04:37 Albumin 2.7 g/dL (3.9-5) L 05/20/16 04:37 Albumin/Globulin Ratio 0.8 % 05/20/16 04:37 Urine Color Straw (Yellow) 05/18/16 08:00 Urine Turbidity Clear (Clear) 05/18/16 08:00 Urine pH 7.0 (5.0-7.0) 05/18/16 08:00 Ur Specific [place] 1.012 (1.003-1.030) 05/18/16 08:00 Urine Protein <15 mg/dl mg/dL (Negative) 05/18/16 08:00 Urine Glucose (UA) >=500 mg/dL (Negative) 05/18/16 08:00 Urine Ketones Neg mg/dL (Negative) 05/18/16 08:00 Urine Blood Neg (Negative) 05/18/16 08:00 Urine Nitrite Neg (Negative) 05/18/16 08:00 Urine Bilirubin Neg (Negative) 05/18/16 08:00 Urine Urobilinogen < 2.0 mg/dL (<2.0) 05/18/16 08:00 Ur Leukocyte Esterase Neg (Negative) 05/18/16 08:00 Urine WBC (Auto) < 1.0 /HPF (0.0-6.0) 05/18/16 08:00 Urine RBC (Auto) 2.0 /HPF (0.0-6.0) 05/18/16 08:00 U Epithel Cells (Auto) < 1.0 /HPF (0-13.0) 05/18/16 08:00 Urine Mucus Few /HPF 05/18/16 08:00 Blood Type A POSITIVE 05/17/16 15:39 Antibody Screen Negative 05/17/16 15:39 Crossmatch See Detail 05/17/16 15:39
[2016-05-20] MEDS: NACL 0.9% 1000 ML 1,000 ML IV SCH (19:55)
[2016-05-20] MEDS: PROTONIX IV SCH (22:04)
[2016-05-21] MEDS: CARAFATE PO SCH ×3 (06:23→17:25)
[2016-05-21] MEDS: NOVOLOG SUB-Q SCH ×4 (09:05→22:39)
[2016-05-21] MEDS: THERAGRAN-M Tab PO SCH (10:04)
[2016-05-21] MEDS: PROTONIX IV SCH (10:05)
[2016-05-21] MEDS: ZESTRIL PO SCH (10:05)
--- NOTE | 2016-05-21 15:20 | Progress Note ---
Assessment and Plan Assessment and plan: 62-year-old man with a past medical history of severe peptic ulcer disease, status post recent mesenteric embolization who presents with acute blood loss anemia due to Melanex 1. Upper GI bleed Continue PPI, continue sucralfate -Repeat EGD on 05/18/16, Duodenum: Persistence of cratered duodenal ulcer, essentially occupying entire duodenal bulb. Small oozing, but likely from scope trauma. No vessel to treat. 2. Acute blood loss anemia sp Transfusion, hg stable 3. Diabetes Sliding scale insulin while in hospital, restart glipizide 4. Hypertension continue low dose NICO 5. Hypokalemia has been repleted History Interval history: no melena overnight Hospitalist Physical - Physical exam Narrative exam: General: Patient appears well in no distress HEENT: MMM, EOMI cardiac: S1-S2 heard lungs: clear to auscultation, abdomen: soft, nontender, nondistended bowel sounds positive extremities: no edema clubbing or cyanosis Skin: no rash or lesion Neuro: no focal deficit Psych: appropriate behavior and mood, cognition intact - Constitutional Vitals: Temp Pulse Resp BP Pulse Ox 98.1 F 87 18 140/80 100 05/21/16 08:00 05/21/16 10:05 05/21/16 10:00 05/21/16 10:05 05/21/16 08:00 General appearance: Present: no acute distress, well-nourished Results - Labs CBC & Chem 7: 05/20/16 04:37 05/20/16 04:37 Labs: Laboratory Last Values WBC 14.2 K/mm3 (4.5-11.0) H 05/20/16 04:37 RBC 3.68 M/mm3 (3.65-5.03) 05/20/16 04:37 Hgb 10.5 gm/dl (11.8-15.2) L 05/20/16 04:37 Hct 31.6 % (35.5-45.6) L 05/20/16 04:37 MCV 86 fl (84-94) 05/20/16 04:37 MCH 28 pg (28-32) 05/20/16 04:37 MCHC 33 % (32-34) 05/20/16 04:37 RDW 14.6 % (13.2-15.2) 05/20/16 04:37 Plt Count 589 K/mm3 (140-440) H 05/20/16 04:37 Lymph % (Auto) 13.2 % (13.4-35.0) L 05/20/16 04:37 [place] % (Auto) 6.8 % (0.0-7.3) 05/20/16 04:37 Eos % (Auto) 1.7 % (0.0-4.3) 05/20/16 04:37 Baso % (Auto) 0.3 % (0.0-1.8) 05/20/16 04:37 Lymph # 1.9 K/mm3 (1.2-5.4) 05/20/16 04:37 [place] # 1.0 K/mm3 (0.0-0.8) H 05/20/16 04:37 Eos # 0.2 K/mm3 (0.0-0.4) 05/20/16 04:37 Baso # 0.0 K/mm3 (0.0-0.1) 05/20/16 04:37 Add Manual Diff Complete 05/17/16 15:39 Total Counted 100 05/17/16 15:39 Seg Neutrophils % 78.0 % (40.0-70.0) H 05/20/16 04:37 Seg Neuts % (Manual) 89.0 % (40.0-70.0) H 05/17/16 15:39 Band Neutrophils % 0 % 05/17/16 15:39 Lymphocytes % (Manual) 8.0 % (13.4-35.0) L 05/17/16 15:39 Reactive Lymphs % (Man) 0 % 05/17/16 15:39 Monocytes % (Manual) 3.0 % (0.0-7.3) 05/17/16 15:39 Eosinophils % (Manual) 0 % (0.0-4.3) 05/17/16 15:39 Basophils % (Manual) 0 % (0.0-1.8) 05/17/16 15:39 Metamyelocytes % 0 % 05/17/16 15:39 Myelocytes % 0 % 05/17/16 15:39 Promyelocytes % 0 % 05/17/16 15:39 Blast Cells % 0 % 05/17/16 15:39 Nucleated RBC % Not Reportable 05/17/16 15:39 Seg Neutrophils # 11.1 K/mm3 (1.8-7.7) H 05/20/16 04:37 Seg Neutrophils # Man 19.6 K/mm3 (1.8-7.7) H 05/17/16 15:39 Band Neutrophils # 0.0 K/mm3 05/17/16 15:39 Lymphocytes # (Manual) 1.8 K/mm3 (1.2-5.4) 05/17/16 15:39 Abs React Lymphs (Man) 0.0 K/mm3 05/17/16 15:39 Monocytes # (Manual) 0.7 K/mm3 (0.0-0.8) 05/17/16 15:39 Eosinophils # (Manual) 0.0 K/mm3 (0.0-0.4) 05/17/16 15:39 Basophils # (Manual) 0.0 K/mm3 (0.0-0.1) 05/17/16 15:39 Metamyelocytes # 0.0 K/mm3 05/17/16 15:39 Myelocytes # 0.0 K/mm3 05/17/16 15:39 Promyelocytes # 0.0 K/mm3 05/17/16 15:39 Blast Cells # 0.0 K/mm3 05/17/16 15:39 WBC Morphology Not Reportable 05/17/16 15:39 Hypersegmented Neuts Not Reportable 05/17/16 15:39 Hyposegmented Neuts Not Reportable 05/17/16 15:39 Hypogranular Neuts Not Reportable 05/17/16 15:39 Smudge Cells Not Reportable 05/17/16 15:39 Toxic Granulation Not Reportable 05/17/16 15:39 Toxic Vacuolation Not Reportable 05/17/16 15:39 Dohle Bodies Not Reportable 05/17/16 15:39 Pelger-Huet Anomaly Not Reportable 05/17/16 15:39 Radha Rods Not Reportable 05/17/16 15:39 Platelet Estimate Appe 05/17/16 15:39 Clumped Platelets Not Reportable 05/17/16 15:39 Plt Clumps, EDTA Not Reportable 05/17/16 15:39 Large Platelets 1+ 05/17/16 15:39 Giant Platelets Not Reportable 05/17/16 15:39 Platelet Satelliting Not Reportable 05/17/16 15:39 Plt Morphology Comment Not Reportable 05/17/16 15:39 RBC Morphology Not Reportable 05/17/16 15:39 Dimorphic RBCs Not Reportable 05/17/16 15:39 Polychromasia Not Reportable 05/17/16 15:39 Hypochromasia 1+ 05/17/16 15:39 Poikilocytosis Not Reportable 05/17/16 15:39 Anisocytosis 1+ 05/17/16 15:39 Microcytosis Not Reportable 05/17/16 15:39 Macrocytosis Not Reportable 05/17/16 15:39 Spherocytes Not Reportable 05/17/16 15:39 Pappenheimer Bodies Not Reportable 05/17/16 15:39 Sickle Cells Not Reportable 05/17/16 15:39 Target Cells Not Reportable 05/17/16 15:39 Tear Drop Cells Not Reportable 05/17/16 15:39 Ovalocytes Not Reportable 05/17/16 15:39 Helmet Cells Not Reportable 05/17/16 15:39 Loaiza-[place] Bodies Not Reportable 05/17/16 15:39 [place] Rings Not Reportable 05/17/16 15:39 [place] Cells Not Reportable 05/17/16 15:39 Bite Cells Not Reportable 05/17/16 15:39 Crenated Cell Not Reportable 05/17/16 15:39 Elliptocytes Not Reportable 05/17/16 15:39 Acanthocytes (Spur) Not Reportable 05/17/16 15:39 Rouleaux Not Reportable 05/17/16 15:39 Hemoglobin C Crystals Not Reportable 05/17/16 15:39 Schistocytes Not Reportable 05/17/16 15:39 Malaria parasites Not Reportable 05/17/16 15:39 Dick Bodies Not Reportable 05/17/16 15:39 Hem Pathologist Commnt No 05/17/16 15:39 PT 13.4 Sec. (12.2-14.9) 05/17/16 15:39 INR 1.03 (0.87-1.13) 05/17/16 15:39 APTT 28.3 Sec. (24.2-36.6) 05/17/16 15:39 VBG pH 7.399 (7.320-7.420) 05/17/16 15:39 Sodium 135 mmol/L (137-145) L 05/20/16 04:37 Potassium 3.5 mmol/L (3.6-5.0) L 05/20/16 04:37 Chloride 96.5 mmol/L (98-107) L 05/20/16 04:37 Carbon Dioxide 27 mmol/L (22-30) 05/20/16 04:37 Anion Gap 15 mmol/L 05/20/16 04:37 BUN 3 mg/dL (9-20) L 05/20/16 04:37 Creatinine 0.7 mg/dL (0.8-1.5) L 05/20/16 04:37 Estimated GFR > 60 ml/min 05/20/16 04:37 BUN/Creatinine Ratio 4.28 % 05/20/16 04:37 Glucose 214 mg/dL (75-100) H 05/20/16 04:37 POC Glucose 322 (70-105) H 05/21/16 11:48 Calcium 8.7 mg/dL (8.4-10.2) 05/20/16 04:37 Total Bilirubin 0.2 mg/dL (0.1-1.2) 05/20/16 04:37 AST 11 units/L (5-40) 05/20/16 04:37 ALT 12 units/L (7-56) 05/20/16 04:37 Alkaline Phosphatase 110 units/L (35-129) 05/20/16 04:37 Total Creatine Kinase 32 units/L (55-170) L 05/17/16 15:39 CK-MB (CK-2) < 1.0 ng/mL (0.0-4.0) 05/17/16 15:39 CK-MB (CK-2) Rel Index 3.1 (0-4) 05/17/16 15:39 Troponin T < 0.010 ng/mL (0.00-0.029) 05/17/16 15:39 Total Protein 6.1 g/dL (6.3-8.2) L 05/20/16 04:37 Albumin 2.7 g/dL (3.9-5) L 05/20/16 04:37 Albumin/Globulin Ratio 0.8 % 05/20/16 04:37 Urine Color Straw (Yellow) 05/18/16 08:00 Urine Turbidity Clear (Clear) 05/18/16 08:00 Urine pH 7.0 (5.0-7.0) 05/18/16 08:00 Ur Specific [place] 1.012 (1.003-1.030) 05/18/16 08:00 Urine Protein <15 mg/dl mg/dL (Negative) 05/18/16 08:00 Urine Glucose (UA) >=500 mg/dL (Negative) 05/18/16 08:00 Urine Ketones Neg mg/dL (Negative) 05/18/16 08:00 Urine Blood Neg (Negative) 05/18/16 08:00 Urine Nitrite Neg (Negative) 05/18/16 08:00 Urine Bilirubin Neg (Negative) 05/18/16 08:00 Urine Urobilinogen < 2.0 mg/dL (<2.0) 05/18/16 08:00 Ur Leukocyte Esterase Neg (Negative) 05/18/16 08:00 Urine WBC (Auto) < 1.0 /HPF (0.0-6.0) 05/18/16 08:00 Urine RBC (Auto) 2.0 /HPF (0.0-6.0) 05/18/16 08:00 U Epithel Cells (Auto) < 1.0 /HPF (0-13.0) 05/18/16 08:00 Urine Mucus Few /HPF 05/18/16 08:00 Blood Type A POSITIVE 05/17/16 15:39 Antibody Screen Negative 05/17/16 15:39 Crossmatch See Detail 05/17/16 15:39
[2016-05-21] MEDS: GLUCOTROL PO SCH (17:20)
[2016-05-21] MEDS: NACL 0.9% 1000 ML 1,000 ML IV SCH (17:36)
[2016-05-21] MEDS: PROTONIX PO SCH (22:39)
[2016-05-22] MEDS: CARAFATE PO SCH ×4 (00:07→18:45)
[2016-05-22] MEDS: NOVOLOG SUB-Q SCH ×4 (08:26→22:12)
[2016-05-22] MEDS: GLUCOTROL PO SCH ×2 (08:26→18:46)
[2016-05-22 09:35] LABS: Basophils % (Auto) 0.3 % (0.0-1.8); Eosinophils % (Auto) 2.7 % (0.0-4.3); Mean Corpuscular HGB Conc 33 % (32-34); Mean Corpuscular Hemoglobin 29 pg (28-32); Mean Corpuscular Volume 86 fl (84-94); Platelet Count 569 K/mm3 (140-440); Red Blood Count 3.47 M/mm3 (3.65-5.03); Red Cell Distribution Width 14.7 % (13.2-15.2); White Blood Count 13.8 K/mm3 (4.5-11.0)
[2016-05-22 09:52] LABS: Anion Gap 15 mmol/L; BUN/Creatinine Ratio 7.14; Blood Urea Nitrogen 5 mg/dL (9-20); Calcium 8.6 mg/dL (8.4-10.2); Carbon Dioxide 28 mmol/L (22-30); Chloride 98.4 mmol/L (98-107); Glucose 245 mg/dL (75-100); Potassium 3.5 mmol/L (3.6-5.0); Sodium 138 mmol/L (137-145)
[2016-05-22] MEDS: ZESTRIL PO SCH (10:40)
[2016-05-22] MEDS: THERAGRAN-M Tab PO SCH (10:41)
[2016-05-22] MEDS: PROTONIX PO SCH ×2 (10:42→21:45)
[2016-05-22 11:10] LABS: Hematocrit 28.7 % (35.5-45.6); Hemoglobin 9.5 gm/dl (11.8-15.2); Mean Corpuscular HGB Conc 33 % (32-34); Mean Corpuscular Hemoglobin 29 pg (28-32); Mean Corpuscular Volume 86 fl (84-94); Platelet Count 551 K/mm3 (140-440); Red Blood Count 3.33 M/mm3 (3.65-5.03); Red Cell Distribution Width 14.5 % (13.2-15.2); White Blood Count 14.4 K/mm3 (4.5-11.0)
[2016-05-22] MEDS ORDERED: K-DUR PO ONE (11:20)
[2016-05-22 11:37] LABS: Anion Gap 16 mmol/L; BUN/Creatinine Ratio 8.33; Blood Urea Nitrogen 5 mg/dL (9-20); Calcium 8.5 mg/dL (8.4-10.2); Carbon Dioxide 28 mmol/L (22-30); Chloride 99.6 mmol/L (98-107); Glucose 215 mg/dL (75-100); Magnesium 1.8 mg/dL (1.7-2.3); Potassium 3.6 mmol/L (3.6-5.0); Sodium 140 mmol/L (137-145)
[2016-05-23] MEDS: CARAFATE PO SCH ×3 (00:35→12:08)
[2016-05-23 06:17] LABS: Basophils % (Auto) 0.3 % (0.0-1.8); Eosinophils % (Auto) 2.5 % (0.0-4.3); Hematocrit 30.4 % (35.5-45.6); Mean Corpuscular HGB Conc 33 % (32-34); Mean Corpuscular Hemoglobin 29 pg (28-32); Mean Corpuscular Volume 87 fl (84-94); Platelet Count 598 K/mm3 (140-440); Red Cell Distribution Width 14.3 % (13.2-15.2); White Blood Count 13.1 K/mm3 (4.5-11.0)
[2016-05-23 06:20] LABS: Anion Gap 15 mmol/L; BUN/Creatinine Ratio 8.57; Blood Urea Nitrogen 6 mg/dL (9-20); Calcium 8.8 mg/dL (8.4-10.2); Carbon Dioxide 28 mmol/L (22-30); Glucose 186 mg/dL (75-100); Potassium 3.8 mmol/L (3.6-5.0); Sodium 139 mmol/L (137-145)
[2016-05-23] MEDS: GLUCOTROL PO SCH (08:50)
[2016-05-23] MEDS: NOVOLOG SUB-Q SCH ×2 (08:51→12:51)
[2016-05-23] MEDS: ZESTRIL PO SCH (10:30)
[2016-05-23] MEDS: PROTONIX PO SCH (10:31)
[2016-05-23] MEDS: THERAGRAN-M Tab PO SCH (10:31)
--- NOTE | 2016-05-23 10:39 | Progress Note ---
Hospitalist Physical - Constitutional Vitals: Temp Pulse Resp BP Pulse Ox 98.1 F 90 16 126/78 98 05/23/16 08:00 05/23/16 10:30 05/23/16 08:00 05/23/16 10:30 05/23/16 08:00 General appearance: Present: no acute distress, well-nourished Results - Labs CBC & Chem 7: 05/23/16 05:40 05/23/16 05:40 Labs: Laboratory Last Values WBC 13.1 K/mm3 (4.5-11.0) H 05/23/16 05:40 RBC 3.50 M/mm3 (3.65-5.03) L 05/23/16 05:40 Hgb 10.0 gm/dl (11.8-15.2) L 05/23/16 05:40 Hct 30.4 % (35.5-45.6) L 05/23/16 05:40 MCV 87 fl (84-94) 05/23/16 05:40 MCH 29 pg (28-32) 05/23/16 05:40 MCHC 33 % (32-34) 05/23/16 05:40 RDW 14.3 % (13.2-15.2) 05/23/16 05:40 Plt Count 598 K/mm3 (140-440) H 05/23/16 05:40 Lymph % (Auto) 14.6 % (13.4-35.0) 05/23/16 05:40 [place] % (Auto) 7.1 % (0.0-7.3) 05/23/16 05:40 Eos % (Auto) 2.5 % (0.0-4.3) 05/23/16 05:40 Baso % (Auto) 0.3 % (0.0-1.8) 05/23/16 05:40 Lymph # 1.9 K/mm3 (1.2-5.4) 05/23/16 05:40 [place] # 0.9 K/mm3 (0.0-0.8) H 05/23/16 05:40 Eos # 0.3 K/mm3 (0.0-0.4) 05/23/16 05:40 Baso # 0.0 K/mm3 (0.0-0.1) 05/23/16 05:40 Add Manual Diff Complete 05/17/16 15:39 Total Counted 100 05/17/16 15:39 Seg Neutrophils % 75.5 % (40.0-70.0) H 05/23/16 05:40 Seg Neuts % (Manual) 89.0 % (40.0-70.0) H 05/17/16 15:39 Band Neutrophils % 0 % 05/17/16 15:39 Lymphocytes % (Manual) 8.0 % (13.4-35.0) L 05/17/16 15:39 Reactive Lymphs % (Man) 0 % 05/17/16 15:39 Monocytes % (Manual) 3.0 % (0.0-7.3) 05/17/16 15:39 Eosinophils % (Manual) 0 % (0.0-4.3) 05/17/16 15:39 Basophils % (Manual) 0 % (0.0-1.8) 05/17/16 15:39 Metamyelocytes % 0 % 05/17/16 15:39 Myelocytes % 0 % 05/17/16 15:39 Promyelocytes % 0 % 05/17/16 15:39 Blast Cells % 0 % 05/17/16 15:39 Nucleated RBC % Not Reportable 05/17/16 15:39 Seg Neutrophils # 9.9 K/mm3 (1.8-7.7) H 05/23/16 05:40 Seg Neutrophils # Man 19.6 K/mm3 (1.8-7.7) H 05/17/16 15:39 Band Neutrophils # 0.0 K/mm3 05/17/16 15:39 Lymphocytes # (Manual) 1.8 K/mm3 (1.2-5.4) 05/17/16 15:39 Abs React Lymphs (Man) 0.0 K/mm3 05/17/16 15:39 Monocytes # (Manual) 0.7 K/mm3 (0.0-0.8) 05/17/16 15:39 Eosinophils # (Manual) 0.0 K/mm3 (0.0-0.4) 05/17/16 15:39 Basophils # (Manual) 0.0 K/mm3 (0.0-0.1) 05/17/16 15:39 Metamyelocytes # 0.0 K/mm3 05/17/16 15:39 Myelocytes # 0.0 K/mm3 05/17/16 15:39 Promyelocytes # 0.0 K/mm3 05/17/16 15:39 Blast Cells # 0.0 K/mm3 05/17/16 15:39 WBC Morphology Not Reportable 05/17/16 15:39 Hypersegmented Neuts Not Reportable 05/17/16 15:39 Hyposegmented Neuts Not Reportable 05/17/16 15:39 Hypogranular Neuts Not Reportable 05/17/16 15:39 Smudge Cells Not Reportable 05/17/16 15:39 Toxic Granulation Not Reportable 05/17/16 15:39 Toxic Vacuolation Not Reportable 05/17/16 15:39 Dohle Bodies Not Reportable 05/17/16 15:39 Pelger-Huet Anomaly Not Reportable 05/17/16 15:39 Radha Rods Not Reportable 05/17/16 15:39 Platelet Estimate Appe 05/17/16 15:39 Clumped Platelets Not Reportable 05/17/16 15:39 Plt Clumps, EDTA Not Reportable 05/17/16 15:39 Large Platelets 1+ 05/17/16 15:39 Giant Platelets Not Reportable 05/17/16 15:39 Platelet Satelliting Not Reportable 05/17/16 15:39 Plt Morphology Comment Not Reportable 05/17/16 15:39 RBC Morphology Not Reportable 05/17/16 15:39 Dimorphic RBCs Not Reportable 05/17/16 15:39 Polychromasia Not Reportable 05/17/16 15:39 Hypochromasia 1+ 05/17/16 15:39 Poikilocytosis Not Reportable 05/17/16 15:39 Anisocytosis 1+ 05/17/16 15:39 Microcytosis Not Reportable 05/17/16 15:39 Macrocytosis Not Reportable 05/17/16 15:39 Spherocytes Not Reportable 05/17/16 15:39 Pappenheimer Bodies Not Reportable 05/17/16 15:39 Sickle Cells Not Reportable 05/17/16 15:39 Target Cells Not Reportable 05/17/16 15:39 Tear Drop Cells Not Reportable 05/17/16 15:39 Ovalocytes Not Reportable 05/17/16 15:39 Helmet Cells Not Reportable 05/17/16 15:39 [place] Bodies Not Reportable 05/17/16 15:39 [place] Rings Not Reportable 05/17/16 15:39 Javad Cells Not Reportable 05/17/16 15:39 Bite Cells Not Reportable 05/17/16 15:39 Crenated Cell Not Reportable 05/17/16 15:39 Elliptocytes Not Reportable 05/17/16 15:39 Acanthocytes (Spur) Not Reportable 05/17/16 15:39 Rouleaux Not Reportable 05/17/16 15:39 Hemoglobin C Crystals Not Reportable 05/17/16 15:39 Schistocytes Not Reportable 05/17/16 15:39 Malaria parasites Not Reportable 05/17/16 15:39 Dick Bodies Not Reportable 05/17/16 15:39 Hem Pathologist Commnt No 05/17/16 15:39 PT 13.4 Sec. (12.2-14.9) 05/17/16 15:39 INR 1.03 (0.87-1.13) 05/17/16 15:39 APTT 28.3 Sec. (24.2-36.6) 05/17/16 15:39 VBG pH 7.399 (7.320-7.420) 05/17/16 15:39 Sodium 139 mmol/L (137-145) 05/23/16 05:40 Potassium 3.8 mmol/L (3.6-5.0) 05/23/16 05:40 Chloride 100.0 mmol/L (98-107) 05/23/16 05:40 Carbon Dioxide 28 mmol/L (22-30) 05/23/16 05:40 Anion Gap 15 mmol/L 05/23/16 05:40 BUN 6 mg/dL (9-20) L 05/23/16 05:40 Creatinine 0.7 mg/dL (0.8-1.5) L 05/23/16 05:40 Estimated GFR > 60 ml/min 05/23/16 05:40 BUN/Creatinine Ratio 8.57 % 05/23/16 05:40 Glucose 186 mg/dL (75-100) H 05/23/16 05:40 POC Glucose 174 (70-105) H 05/23/16 05:57 Calcium 8.8 mg/dL (8.4-10.2) 05/23/16 05:40 Magnesium 1.8 mg/dL (1.7-2.3) 05/22/16 10:59 Total Bilirubin 0.2 mg/dL (0.1-1.2) 05/20/16 04:37 AST 11 units/L (5-40) 05/20/16 04:37 ALT 12 units/L (7-56) 05/20/16 04:37 Alkaline Phosphatase 110 units/L (35-129) 05/20/16 04:37 Total Creatine Kinase 32 units/L (55-170) L 05/17/16 15:39 CK-MB (CK-2) < 1.0 ng/mL (0.0-4.0) 05/17/16 15:39 CK-MB (CK-2) Rel Index 3.1 (0-4) 05/17/16 15:39 Troponin T < 0.010 ng/mL (0.00-0.029) 05/17/16 15:39 Total Protein 6.1 g/dL (6.3-8.2) L 05/20/16 04:37 Albumin 2.7 g/dL (3.9-5) L 05/20/16 04:37 Albumin/Globulin Ratio 0.8 % 05/20/16 04:37 Urine Color Straw (Yellow) 05/18/16 08:00 Urine Turbidity Clear (Clear) 05/18/16 08:00 Urine pH 7.0 (5.0-7.0) 05/18/16 08:00 Ur Specific Parker 1.012 (1.003-1.030) 05/18/16 08:00 Urine Protein <15 mg/dl mg/dL (Negative) 05/18/16 08:00 Urine Glucose (UA) >=500 mg/dL (Negative) 05/18/16 08:00 Urine Ketones Neg mg/dL (Negative) 05/18/16 08:00 Urine Blood Neg (Negative) 05/18/16 08:00 Urine Nitrite Neg (Negative) 05/18/16 08:00 Urine Bilirubin Neg (Negative) 05/18/16 08:00 Urine Urobilinogen < 2.0 mg/dL (<2.0) 05/18/16 08:00 Ur Leukocyte Esterase Neg (Negative) 05/18/16 08:00 Urine WBC (Auto) < 1.0 /HPF (0.0-6.0) 05/18/16 08:00 Urine RBC (Auto) 2.0 /HPF (0.0-6.0) 05/18/16 08:00 U Epithel Cells (Auto) < 1.0 /HPF (0-13.0) 05/18/16 08:00 Urine Mucus Few /HPF 05/18/16 08:00 Blood Type A POSITIVE 05/17/16 15:39 Antibody Screen Negative 05/17/16 15:39 Crossmatch See Detail 05/17/16 15:39
--- NOTE | 2016-05-23 10:42 | Discharge Summary ---
Providers - Providers Date of Admission: 05/17/16 18:49 Attending physician: LIZZ CHO MD Primary care physician: KATHIE BARRIGA Hospitalization Condition: Serious Disposition: DISCHARGED TO HOME OR SELFCARE Time spent for discharge: 35 minutes Core Measure Documentation - Palliative Care Palliative Care/ Comfort Measures: Not Applicable - Core Measures Any of the following diagnoses?: none Exam - Constitutional Vitals: Temp Pulse Resp BP Pulse Ox 98.1 F 90 16 126/78 98 05/23/16 08:00 05/23/16 10:30 05/23/16 08:00 05/23/16 10:30 05/23/16 08:00 General appearance: Present: no acute distress, well-nourished - EENT Eyes: Present: PERRL ENT: hearing intact, clear oral mucosa - Neck Neck: Present: supple, normal ROM - Respiratory Respiratory effort: normal Respiratory: bilateral: CTA - Cardiovascular Heart Sounds: Present: S1 & S2. Absent: rub, click - Extremities Extremities: pulses symmetrical, No edema Peripheral Pulses: within normal limits - Abdominal General gastrointestinal: Present: soft, non-tender, non-distended, normal bowel sounds Male genitourinary: Present: normal - Integumentary Integumentary: Present: clear, warm, dry - Musculoskeletal Musculoskeletal: gait normal, strength equal bilaterally - Psychiatric Psychiatric: appropriate mood/affect, intact judgment & insight - Neurologic Neurologic: CNII-XII intact, moves all extremities Plan Follow up with: PRIMARY CARE, [Referring] - 3-5 Days Forms: Accompanied Note Prescriptions: Multivitamin Tab W-MINERAL [Multiple Vitamin/Mineral (Theragran M)] 1 each PO QDAY #30 tablet Nicotine [Habitrol] 14 mg TD DAILY #30 patch Pantoprazole [Protonix TAB] 40 mg PO BID #60 tablet Sucralfate [Carafate] 1 gm PO Q6HR #120 udc
[2016-05-23 16:21] VITALS: BP 130/78
== END 2016-05-23 17:24 | disposition home or self-care (01) | DRG 378 ==
LOC: ED 12:56 → 3A 18:49 → CC1 05-18 11:00 → CC2 05-19 03:04 → 3A 05-19 03:22
PROVIDERS: ADMIT Internal Medicine; ATTEND Internal Medicine
PROC: 0DJ08ZZ Inspection of Upper Intestinal Tract, Via Natural or Artificial Opening Endoscopic (ICD-10-PCS; principal; 2016-05-18)
PROC: 30233N1 Transfusion of Nonautologous Red Blood Cells into Peripheral Vein, Percutaneous Approach (ICD-10-PCS; 2016-05-18)
DX: K26.0 Acute duodenal ulcer with hemorrhage (principal); D62 Acute posthemorrhagic anemia; E87.6 Hypokalemia; I10 Essential (primary) hypertension; D47.3 Essential (hemorrhagic) thrombocythemia; E11.9 Type 2 diabetes mellitus without complications; K21.9 Gastro-esophageal reflux disease without esophagitis; Z87.891 Personal history of nicotine dependence
CPT/HCPCS: 36415; 74177; 80048; 80053; 81001; 82271; 82550; 82553; 82805; 82962; 83735; 84484; 85007; 85025; 85027; 85610; 85730; 86850; 86900; 86901; 86920; 93005; 93010; 96361; 96374; 99291; 99406; A9270-GY; C9113; J1815; J2704; J3480; J7030; J7040; P9016; Q9967